=== PATIENT | male | born 1960 | race Caucasian/White ===

== ENCOUNTER 2019-11-03 15:16 | Outpatient (CLI) | payer OTHER, SELFPAY ==
[2019-11-03 15:36] LABS: Creatinine Urine 145.95 mg/dL (40-278); MALB Creatinine Ratio 4.7 mg/g (0-30); Microalbumin Urine Random 6.9 mg/L
[2019-11-03 15:54] LABS: Hemoglobin A1C 6.4 % (<5.7)
[2019-11-03 16:06] LABS: Anion Gap 16.3 mmol/L (7-16); Blood Urea Nitrogen 25 mg/dL (7-18); Calcium 9.3 mg/dL (8.5-10.1); Carbon Dioxide 27 mmol/L (21-32); Chloride 101 mmol/L (98-108); Cholesterol 162 mg/dL (0-200); Estimated Glomerular Filt Rate 59; Glucose 121 mg/dL (70-99); HDL Direct 46 mg/dL (40-60); LDL Cholesterol Calculated 88 mg/dL (<130); Osmolality Calculated 295 mOsm/kg (285-295); Potassium 4.3 mmol/L (3.5-5.1); Sodium 140 mmol/L (136-145); Triglycerides 138 mg/dL (0-150)
== END 2019-11-03 15:17 | disposition home or self-care (01) ==
LOC: CHSLAB 15:20
PROVIDERS: PCP Family Medicine; Visit Provider Family Medicine
DX: E11.9 Type 2 diabetes mellitus without complications (principal)
CPT/HCPCS: 36415; 80048; 80061; 82043; 83036

== ENCOUNTER 2020-06-05 14:26 | Outpatient (CLI) | payer OTHER, SELFPAY ==
--- NOTE | ~2020-06-05 | XR_ITS ---
EXAMINATION: XR chest 2V DATE: 06/05/2020 15:24 INDICATION: Hypertension. Preop. TECHNIQUE: Frontal and lateral views of the chest were obtained. COMPARISON: Chest 2 views 02/15/2011 FINDINGS: A calcified right lung nodule and calcified right hilar lymph nodes are consistent with old granulomatous disease. No pleural effusion or pneumothorax. The heart size is normal. IMPRESSION: 1. No acute cardiopulmonary disease. Reviewed, dictated and finalized at location A.
[2020-06-05 14:41] LABS: Basophils Absolute Auto 0.08 K/mm3 (0.00-0.10); Basophils Percent Auto 1.3 % (0.0-1.0); Eosinophils Absolute Auto 0.37 K/mm3 (0.02-0.50); Eosinophils Percent Auto 5.8 % (1.0-6.0); Hematocrit 40.8 % (40.0-54.0); Immature Granulocyte Absolute 0.02 K/mm3 (0.00-0.00); Immature Granulocyte Percent A 0.3 % (0.0-0.0); Lymphocytes Percent Auto 23.6 % (18.0-42.0); Mean Corpuscular HGB Conc 31.9 g/dL (32.0-36.0); Mean Corpuscular Hemoglobin 28.1 pg (27.0-31.0); Mean Corpuscular Volume 88.3 fL (78.0-102.0); Mean Platelet Volume 9.6 fl (8.7-11.0); Monocytes Absolute Auto 0.58 K/mm3 (0.10-0.90); Monocytes Percent Auto 9.1 % (2.0-11.0); Neutrophils Absolute Auto 3.8 K/mm3 (1.7-7.2); Neutrophils Percent Auto 59.9 % (50.0-70.0); Platelet Count Result 265 K/mm3 (150-420); Red Blood Count 4.62 M/mm3 (4.70-6.10); Red Cell Distribution Width 12.9 % (11.6-14.4); White Blood Count 6.4 K/mm3 (4.8-10.8)
[2020-06-05 14:50] LABS: Add Urine Microscopic? NO; Appearance Urine Clear (Clear); Bilirubin Urine Negative (Negative); Blood Urine Negative (Negative); Color Urine Yellow (Yellow); Glucose Urine UA Negative (Negative); Ketones Urine Negative (Negative); Leukocyte Esterase Ur Negative (Negative); Nitrate Urine Negative (Negative); Protein Urine Negative (Negative); Urobilinogen Urine 0.2 mg/dL (0.2-1.0)
--- NOTE | 2020-06-05 15:05 | ECG_ITS ---
Measurements Intervals [place] Rate: 68 P: 46 WI: 177 QRS: 1 QRSD: 97 T: 51 QT: 383 QTc: 409 Interpretive Statements SINUS RHYTHM NORMAL ECG Electronically Signed On 06-05-2020 17:21:16 CDT by Rodney Garcia D.O.
[2020-06-05 15:43] LABS: Alanine Aminotransferase 49 U/L (16-63); Albumin Level 4.1 g/dL (3.4-5.0); Alkaline Phosphatase 108 U/L (46-116); Anion Gap 5 mmol/L (8-16); Aspartate Amino Transferase 20 U/L (15-37); Bilirubin,Total 0.2 mg/dL (0.00-1.00); Blood Urea Nitrogen 27 mg/dL (7-18); Carbon Dioxide 31 mmol/L (21-32); Chloride 101 mmol/L (98-108); Estimated Glomerular Filt Rate > 60; Glucose 144 mg/dL (70-99); Osmolality Calculated 292 mOsm/kg (285-295); Potassium 4.5 mmol/L (3.5-5.1); Sodium 137 mmol/L (136-145); Total Protein 7.2 g/dL (6.4-8.2)
[2020-06-07 21:43] LABS: Vitamin D 25 Hydroxy 55 ng/mL (30-100)
== END 2020-06-05 14:27 | disposition home or self-care (01) ==
LOC: CHSLAB 14:29
DX: Z01.818 Encounter for other preprocedural examination (principal)
CPT/HCPCS: 36415; 71046; 80053; 81003; 82306; 85025; 93005

== ENCOUNTER 2020-07-11 07:58 | Outpatient (CLI) | payer OTHER, SELFPAY ==
[2020-07-11 08:21] LABS: Hemoglobin A1C 6.9 % (<5.7)
== END 2020-07-11 07:59 | disposition home or self-care (01) ==
LOC: CHSLAB 08:00
PROVIDERS: PCP Family Medicine; Visit Provider Family Medicine
DX: E11.9 Type 2 diabetes mellitus without complications (principal)
CPT/HCPCS: 36415; 83036

== ENCOUNTER 2020-09-25 10:14 | Outpatient (CLI) | payer OTHER, SELFPAY ==
[2020-09-25 10:27] LABS: Basophils Absolute Auto 0.07 K/mm3 (0.00-0.10); Basophils Percent Auto 1.2 % (0.0-1.0); Eosinophils Absolute Auto 0.26 K/mm3 (0.02-0.50); Eosinophils Percent Auto 4.6 % (1.0-6.0); Hematocrit 38.9 % (40.0-54.0); Hemoglobin 12.3 g/dL (14.0-18.0); Immature Granulocyte Absolute 0.03 K/mm3 (0.00-0.00); Immature Granulocyte Percent A 0.5 % (0.0-0.0); Lymphocytes Absolute Auto 1.86 K/mm3 (1.10-4.50); Lymphocytes Percent Auto 32.9 % (18.0-42.0); Mean Corpuscular HGB Conc 31.6 g/dL (32.0-36.0); Mean Corpuscular Hemoglobin 26.7 pg (27.0-31.0); Mean Corpuscular Volume 84.4 fL (78.0-102.0); Mean Platelet Volume 8.6 fl (8.7-11.0); Monocytes Absolute Auto 0.48 K/mm3 (0.10-0.90); Monocytes Percent Auto 8.5 % (2.0-11.0); Neutrophils Percent Auto 52.3 % (50.0-70.0); Platelet Count Result 289 K/mm3 (150-420); Red Blood Count 4.61 M/mm3 (4.70-6.10); Red Cell Distribution Width 14.1 % (11.6-14.4); White Blood Count 5.7 K/mm3 (4.8-10.8)
[2020-09-25 11:28] LABS: Alanine Aminotransferase 32 U/L (16-63); Albumin Level 4.2 g/dL (3.4-5.0); Alkaline Phosphatase 117 U/L (46-116); Anion Gap 10 mmol/L (8-16); Aspartate Amino Transferase 18 U/L (15-37); Bilirubin,Total 0.2 mg/dL (0.00-1.00); Blood Urea Nitrogen 18 mg/dL (7-18); CRP < 0.5 mg/dL (0.0-0.9); Calcium 9.3 mg/dL (8.5-10.1); Carbon Dioxide 28 mmol/L (21-32); Chloride 100 mmol/L (98-108); Estimated Glomerular Filt Rate > 60; Glucose 143 mg/dL (70-99); Osmolality Calculated 289 mOsm/kg (285-295); Potassium 4.3 mmol/L (3.5-5.1); Sodium 138 mmol/L (136-145); Total Protein 7.4 g/dL (6.4-8.2)
[2020-09-25 11:36] LABS: Erythrocyte Sedimentation Rate 20 mm/hr (0-20)
[2020-10-03 13:09] LABS: Vitamin D 25 Hydroxy 53 ng/mL (30-100)
== END 2020-09-25 10:15 | disposition home or self-care (01) ==
LOC: CHSLAB 10:18
PROVIDERS: PCP Family Medicine
DX: Z01.818 Encounter for other preprocedural examination (principal)
CPT/HCPCS: 36415; 80053; 82306; 85025; 85652; 86140

== ENCOUNTER 2021-01-15 13:23 | Outpatient (CLI) | payer OTHER, SELFPAY ==
[2021-01-15 13:40] LABS: Hematocrit 38.5 % (40.0-54.0); Hemoglobin 11.8 g/dL (14.0-18.0); Mean Corpuscular HGB Conc 30.6 g/dL (32.0-36.0); Mean Corpuscular Hemoglobin 25.4 pg (27.0-31.0); Mean Platelet Volume 8.9 fl (8.7-11.0); Platelet Count Result 321 K/mm3 (150-420); Red Blood Count 4.64 M/mm3 (4.70-6.10); Red Cell Distribution Width 14.4 % (11.6-14.4); White Blood Count 7.1 K/mm3 (4.8-10.8)
[2021-01-15] MEDS: SODIUM CHLORIDE 0.9% IV 1,000 ML 500 ML IVPB (13:54)
[2021-01-15] MEDS: ONDANSETRON INJ 4 MG/2 ML VIAL IV PUSH (13:55)
--- NOTE | 2021-01-15 13:55 | PC.NURSE ---
Patient ambulated to floor, gate steady.
[2021-01-15 14:13] LABS: Alanine Aminotransferase 46 U/L (16-63); Albumin Level 3.8 g/dL (3.4-5.0); Alkaline Phosphatase 98 U/L (46-116); Anion Gap 8 mmol/L (8-16); Aspartate Amino Transferase 37 U/L (15-37); Bilirubin,Total 0.3 mg/dL (0.00-1.00); Blood Urea Nitrogen 21 mg/dL (7-18); Calcium 8.7 mg/dL (8.5-10.1); Carbon Dioxide 29 mmol/L (21-32); Chloride 100 mmol/L (98-108); Estimated Glomerular Filt Rate > 60; Glucose 107 mg/dL (70-99); Osmolality Calculated 287 mOsm/kg (285-295); Potassium 3.9 mmol/L (3.5-5.1); Sodium 137 mmol/L (136-145)
[2021-01-15 14:16] LABS: Influenza A QL RT-PCR Negative (Negative); Influenza B QL RT-PCR Negative (Negative); SARS-CoV-2 RNA PCR Negative (Negative)
--- NOTE | 2021-01-15 15:49 | PC.NURSE ---
IV removed, catheter intact. Patient ambulated off of floor, gait steady
== END 2021-01-15 13:24 | disposition home or self-care (01) ==
PROVIDERS: PCP Family Medicine; Visit Provider Family Medicine
DX: K52.9 Noninfective gastroenteritis and colitis, unspecified (principal); E86.0 Dehydration; Z20.822 Contact with and (suspected) exposure to COVID-19
CPT/HCPCS: 36415; 80053; 85027; 87502; 96360; 96361; 96374; C9803; J2405; J7030; U0003; U0005

== ENCOUNTER 2021-03-20 09:42 | Outpatient (CLI) | payer OTHER, SELFPAY ==
--- NOTE | ~2021-03-20 | XR_ITS ---
EXAMINATION: XR shoulder RT min 2V DATE: 03/20/2021 10:01 INDICATION: Right shoulder pain. TECHNIQUE: 4 views of right shoulder were obtained. COMPARISON: Right shoulder radiographs 05/28/2011 FINDINGS: Bone alignment is normal. No fracture. Glenohumeral joint is normal. There is mild acromioc lavicular joint osteoarthritis. There is mild calcific tendinitis of the rotator cuff. IMPRESSION: 1. Mild acromioclavicular joint osteoarthritis. 2. Mild calcific tendinitis of the rotator cuff. Reviewed, dictated and finalized at location A.
== END 2021-03-20 09:43 | disposition home or self-care (01) ==
LOC: CHSIMG 09:45
PROVIDERS: PCP Family Medicine; Visit Provider Family Medicine
DX: M25.511 Pain in right shoulder (principal)
CPT/HCPCS: 73030

== ENCOUNTER 2022-01-22 15:05 | Outpatient (CLI) | payer OTHER, SELFPAY ==
[2022-01-22 15:23] LABS: Hematocrit 44.5 % (40.0-54.0); Hemoglobin 14.9 g/dL (14.0-18.0); Mean Corpuscular HGB Conc 33.5 g/dL (32.0-36.0); Mean Corpuscular Hemoglobin 29.4 pg (27.0-31.0); Mean Corpuscular Volume 87.8 fL (78.0-102.0); Mean Platelet Volume 9.4 fl (8.7-11.0); Platelet Count Result 306 K/mm3 (150-420); Red Blood Count 5.07 M/mm3 (4.70-6.10); White Blood Count 9.9 K/mm3 (4.8-10.8)
[2022-01-22 16:02] LABS: Hemoglobin A1C 5.7 % (<5.7)
[2022-01-22 16:22] LABS: Alanine Aminotransferase 41 U/L (16-63); Alkaline Phosphatase 80 U/L (46-116); Anion Gap 11 mmol/L (8-16); Aspartate Amino Transferase 27 U/L (15-37); Bilirubin,Total 0.3 mg/dL (0.00-1.00); Blood Urea Nitrogen 19 mg/dL (7-18); Calcium 9.6 mg/dL (8.5-10.1); Carbon Dioxide 28 mmol/L (21-32); Chloride 100 mmol/L (98-108); Cholesterol 164 mg/dL (0-200); Estimated Glomerular Filt Rate > 60; Glucose 174 mg/dL (70-99); HDL Direct 70 mg/dL (40-60); LDL Cholesterol Calculated 79 mg/dL (<130); Osmolality Calculated 294 mOsm/kg (285-295); Potassium 3.7 mmol/L (3.5-5.1); Prostate Specific Antigen 1.7 ng/mL (< OR = 4.0); Sodium 139 mmol/L (136-145); Total Protein 7.4 g/dL (6.4-8.2); Triglycerides 74 mg/dL (0-150)
== END 2022-01-22 15:06 | disposition home or self-care (01) ==
LOC: CHSLAB 15:09
PROVIDERS: PCP Family Medicine; Visit Provider Family Medicine
DX: E78.5 Hyperlipidemia, unspecified (principal); I10 Essential (primary) hypertension; E11.9 Type 2 diabetes mellitus without complications; R35.1 Nocturia
CPT/HCPCS: 36415; 80053; 80061; 83036; 84153; 85027; G0103

== ENCOUNTER 2022-03-28 09:28 | Outpatient (CLI) | payer OTHER, SELFPAY ==
--- NOTE | ~2022-03-28 | CT_ITS ---
EXAMINATION: CT abdomen pelvis wo con DATE: 03/28/2022 09:55 INDICATION: Left flank pain TECHNIQUE: Computed tomography (CT) of the abdomen and pelvis was performed without intravenous contr ast. The dose-length product (DLP) was 197.29 mGy-cm. Automated exposure control and iterative recons truction technique were employed. COMPARISON: None FINDINGS: There is a 6 mm nodule of the right lower lobe. The heart size is normal. There is a small sliding hiatal hernia. Punctate calcifications in an otherwise normal spleen likely represent healed granulomatous disease. The liver, gallbladder, pancreas, and adrenal glands are normal. There is a 2. 2 cm cyst in the upper pole of the right kidney. The left kidney is unremarkable. No stones are ident ified in the kidneys, ureters, or bladder. There is mild left hydroureter. No pathologically enlarged abdominal or pelvic lymph nodes are identified. There is calcified atherosclerosis of the aorta and many of the other arteries. There is no free intraperitoneal gas or evidence of bowel obstruction. A moderate volume of colonic stool is present. There are surgical changes in the lumbar spine. IMPRESSION: 1. Mild left hydroureter without obstructing stone visualized. Finding could reflect recent passage o f stone. 2. 6 mm nodule of the right lower lobe. Follow-up CT in 6-12 months is recommended. Reviewed, dictated and finalized at location B. IMPRESSION: 1. Mild left hydroureter without obstructing stone visualized. Finding could re flect recent passage of stone. 2. 6 mm nodule of the right lower lobe. Follow-up CT in 6-12 months is recommen ded.
[2022-03-28 10:05] LABS: Hematocrit 43.8 % (40.0-54.0); Hemoglobin 14.4 g/dL (14.0-18.0); Mean Corpuscular HGB Conc 32.9 g/dL (32.0-36.0); Mean Corpuscular Hemoglobin 29.4 pg (27.0-31.0); Mean Corpuscular Volume 89.4 fL (78.0-102.0); Mean Platelet Volume 8.8 fl (8.7-11.0); Platelet Count Result 301 K/mm3 (150-420); Red Cell Distribution Width 15.8 % (11.6-14.4); White Blood Count 10.4 K/mm3 (4.8-10.8)
[2022-03-28 10:21] LABS: Alanine Aminotransferase 33 U/L (16-63); Albumin Level 3.7 g/dL (3.4-5.0); Alkaline Phosphatase 83 U/L (46-116); Anion Gap 5 mmol/L (8-16); Aspartate Amino Transferase 15 U/L (15-37); Bilirubin,Total 0.2 mg/dL (0.00-1.00); Blood Urea Nitrogen 22 mg/dL (7-18); Carbon Dioxide 30 mmol/L (21-32); Chloride 103 mmol/L (98-108); Estimated Glomerular Filt Rate > 60; Glucose 118 mg/dL (70-99); Lipase 118 U/L (73-393); Osmolality Calculated 290 mOsm/kg (285-295); Potassium 4.3 mmol/L (3.5-5.1); Sodium 138 mmol/L (136-145)
== END 2022-03-28 09:29 | disposition home or self-care (01) ==
LOC: CHSLAB 09:30
PROVIDERS: PCP Family Medicine; Visit Provider Family Medicine
DX: R10.9 Unspecified abdominal pain (principal)
CPT/HCPCS: 36415; 74176; 80053; 83690; 85027

== ENCOUNTER 2022-07-22 13:12 | Emergency (ER) | payer OTHER, SELFPAY ==
--- NOTE | ~2022-07-22 | CT_ITS ---
EXAMINATION: CT pelvis wo con DATE: 07/22/2022 14:08 INDICATION: Right hip pain post fall TECHNIQUE: High resolution computed tomography (CT) of the pelvis was performed without intravenous c ontrast. Additional sagittal and coronal reconstructions were performed. Automated exposure control a nd iterative reconstruction technique were employed. The dose-length product was 265.19 mGy-cm. COMPARISON: 03/28/2022 FINDINGS: Mild levocurvature the visualized lower lumbar spine. Again seen are changes of prior L5-S1 anterior spinal fusion with interbody bone graft cage and anterior plate and screw fixation. L3-L5 laminectomi es and L4-S1 posterior spinal fusion with bilateral vertical rods with pedicle screw fixations at L4 and S1. The right pedicle screw at L4 extends beyond the lateral margin of the vertebral bodies. Bone graft harvest site at the right posterior iliac spine. No acute fracture. Moderate bilateral sacroil iac and mild bilateral hip osteoarthritis. Bladder is normal. Prostatomegaly. Visualized portion of t he bowels are unremarkable. No free fluid in the pelvis. No pathologically enlarged pelvic or inguina l lymphadenopathy. IMPRESSION: 1. No hip fracture or other acute osseous abnormality. 2. Stable appearance of postoperative changes including anterior and posterior spinal fusion at the l ower lumbar spine. Reviewed, dictated and finalized at location B. IMPRESSION: 1. No hip fracture or other acute osseous abnormality. 2. Stable appearance of postoperative changes including anterior and posterior spinal fusion at the lower lumbar spine.
[2022-07-22 13:15] VITALS: BP 167/87; PULSE 106; RESP 16; TEMP 36.9; O2SAT 96
[2022-07-22 13:26] VITALS: BP 167/87; PULSE 106; RESP 16; TEMP 36.9; O2SAT 96
[2022-07-22] MEDS: ACETAMINOPHEN 325 MG TABLET 650 MG PO (14:58)
--- NOTE | 2022-07-22 15:29 | PC.NURSE ---
PT IS LYING ON STRETCHER IN EXAM ROOM WATCHING TV AWAITING ERP DECISION. NAD NOTED. PT WAS MOVED TO ROOM 5 DUE TO NEEDING THE MONITOR FOR ANOTHER PT. WILL CONTINUE TO MONITOR.
[2022-07-22 15:39] VITALS: BP 120/89; PULSE 77; RESP 16; O2SAT 96
--- NOTE | 2022-07-22 15:44 | ED.LOWEXIN ---
HPI - Extremity Injury (Lower) General Chief Complaint: Extremity Injury, Lower Stated Complaint: FELL RIGHT HIP PAIN Time Seen by Provider: 07/22/22 13:16 Source: patient and RN notes reviewed Mode of arrival: ambulatory Limitations: no limitations History of Present Illness complaint: hip injury and fall Onset (ago): hour(s) (1) Injury: Right: hip Place: street/outdoors Severity: mild Severity scale (1-10): 3 Exacerbating factors: weight bearing Context: fall Associated symptoms: able to partially bear weight Other symptoms: none Related Data Allergies Allergy/AdvReac Type Severity Reaction Status Date / Time No Known Allergies Allergy Unknown Verified 07/15/22 07:40 Review of Systems Review of Systems: All systems reviewed & are unremarkable except as noted in HPI and below Constitutional: Constitutional: Reports no additional constitutional complaints Eyes: Eyes: Reports no additional eye complaints ENT: Reports system reviewed and no additional complaints, except as documented Cardiovascular: Cardiovascular: Reports no additional cardiovascular complaints Respiratory: Respiratory: Reports no additional respiratory complaints Gastrointestinal: Gastrointestinal: Reports no additional gastrointestinal complaints Musculoskeletal: Musculoskeletal: Reports no additional musculoskeletal complaints and Reports arthralgias Integumentary/Breasts: Skin/Breast: Reports system reviewed and no additional complaints, except as docu Neurologic: Reports system reviewed and no additional complaints, except as documented Psychiatric: Psychiatric: Reports no additional psychiatric complaints Endocrine: Endocrine: Reports no additional endocrine complaints Hematologic/Lymphatic: Hematologic/Lymphatic: Reports no additional hematologic/lymphatic complaints Allergic/Immunologic: Allergic/Immunologic: Reports no additional allergic/immunologic complaints PMFSH Past Medical History Medical History DM2 (diabetes mellitus, type 2) Hip pain Hyperlipidemia Hypertension Overweight Surgical History Surgical History History of elbow surgery History of knee surgery History of shoulder surgery Family History Family History Father Family history of type 2 diabetes mellitus Social History Social History Smoking status: Former smoker Tobacco type: cigarettes Additional smoking assessment comments: Quit 10-06-2018. Additional living arrangements comments: Exam Const: General: healthy appearing, no acute distress and well nourished Nutritional Appearance: well nourished Orientation/consciousness: patient oriented x3 Limitations: no limitations HENMT: Head: normal to inspection Ears: external ears normal, TM's normal bilaterally and EAC's normal Face/Nose/Sinus: Normal external nose present, Normal nares present, normal facial exam and sinuses nontender Face and sinus: normal facial exam and sinuses nontender Mouth: Yes Normal oral and palatal mucosa present and Yes moist mucous membranes Teeth and gingiva: dentition normal Throat: posterior oropharynx normal Eyes: Conjunctivae: conjunctivae normal Pupils: Equal, round and reactive pupils present EOM: EOMs intact bilaterally Neck: Neck: normal visual inspection, no lymphadenopathy and no meningeal signs Chest: Chest palpation & inspection: normal inspection of the chest Resp: Effort & Inspection: normal respiratory effort Auscultation: clear to auscultation bilaterally Cardio: Rate: regular rate Rhythm: regular rhythm GI: GI Palp: Yes Soft to palpation and No Tenderness to palpation present (GI) Auscultation: normal bowel sounds : General: Yes bladder normal to palpation and Yes no CVA tenderness Back/Spine/Pelvis: B
== END 2022-07-22 16:10 | disposition home or self-care (01) ==
PROVIDERS: Emergency Provider Emergency Medicine; PCP Family Medicine
DX: S70.01XA Contusion of right hip, initial encounter (principal); W19.XXXA Unspecified fall, initial encounter
CPT/HCPCS: 72192; 99284; A9270

== ENCOUNTER 2022-08-02 12:47 | Outpatient (CLI) | payer OTHER, SELFPAY ==
--- NOTE | ~2022-08-02 | MR_ITS ---
EXAMINATION: MR hip RT wo con DATE: 08/02/2022 14:02 INDICATION: Right hip pain. TECHNIQUE: Magnetic resonance imaging (MRI) of the right hip was performed without intravenous contra st. COMPARISON: Pelvis CT 07/22/2022 FINDINGS: Bones/cartilage: There is lumbar levoscoliosis. There are changes of anterior and posterior fusion procedures in lumba r spine. There is a subchondral fracture of right femoral head posterosuperiorly with subchondral scl erosis and cortical irregularity. Edema-like marrow signal intensity extends from this area into the femoral neck. There are areas of full-thickness cartilage loss in right hip joint superiorly and post erosuperiorly. There is There is moderate left hip osteoarthritis. Labrum: There is a tear of the right acetabular labrum. Fluid: There is a right hip joint effusion. Soft tissues: There is mild tendinopathy of right hamstring origin. There is a partial tear of left hamstring origi n. The iliopsoas tendons are normal. Right gluteus minimus and gluteus medius tendons are normal. The re is mild left gluteus minimus tendinopathy. IMPRESSION: 1. Severe chondrosis of right hip joint with subchondral fracture of right femoral head. 2. Right hip joint effusion. 3. Moderate left hip osteoarthritis. Reviewed, dictated and finalized at location A. OPERATOR AUTOMATIC IMPRESSION: 1. Severe chondrosis of right hip joint with subchondral fracture of right femo ral head. 2. Right hip joint effusion. 3. Moderate left hip osteoarthritis.
== END 2022-08-02 12:48 | disposition home or self-care (01) ==
LOC: CHSIMG 12:48
PROVIDERS: PCP Family Medicine; Visit Provider Family Medicine
DX: M25.551 Pain in right hip (principal)
CPT/HCPCS: 73721

== ENCOUNTER 2023-01-08 11:51 | Outpatient (CLI) | payer OTHER, SELFPAY ==
--- NOTE | ~2023-01-08 | DEXA_ITS ---
Bone Density Report Name: TAYLOR TORRES Age: 62 Sex: Male Ethnicity: White Date of : 1960 Indication: parental hip fracture; height loss; prior fracture; rheumatoid arthritis; Referring Provider: Teodoro Plunkett Study: Bone densitometry was performed. Exam Date: January 08, 2023 Accession number: [id number] Bone Density: Region BMD T-score Z-score Classification Femoral Neck (Left) 0.641 -2.1 -1.1 Osteopenia Total Hip (Left) 0.888 -1.0 -0.5 Normal World Health Organization criteria for BMD impression classify patients as: Normal (T-score at or above -1.0), Osteopenia (T-score between -1.0 and -2.5), or Osteoporosis (T-score at or below -2.5). 10-year Fracture Risk: FRAX not reported because: Prior hip or vertebral fracture Clinical Information Provided by Patient: Have had a previous hip or vertebral fracture Has had a low trauma fracture Parent has had a hip fracture Has rheumatoid arthritis Has used the following medications: Vitamin D Patient maximum height was 72 No regular weight bearing exercise Does not regularly consume dairy products Drinks caffeinated beverages Impression: The patient has low bone mass, based on the Left Femoral Neck T-score. The patient has risk factors, including: parental hip fracture, previous fracture. Discussion: INCREASED RISK OF FRACTURE DUE TO HISTORY OF LOW TRAUMA FRACTURE. The patient's previous fracture puts the patient at high risk of a future fracture. In untreated patients, the risk of osteoporotic fracture increases approximately two-fold for each 1.0 SD decrease in T-score. Low bone density is not the only risk factor for fracture; also consider factors such as patient's age, frailty or poor health, risk of falling, risk of injury, previous osteoporotic fracture, family history of osteoporosis, cigarette smoking, low body weight, etc. Not everyone with a low trauma fracture has osteoporosis; osteomalacia and other metabolic bone disorders should also be considered. Patients who have osteoporosis should be evaluated for specific diseases and conditions (secondary causes) that may cause or contribute to bone loss and fracture risk. National Osteoporosis Foundation (NOF) recommends pharmacologic intervention for patients with a prior low trauma hip or vertebral fracture regardless of BMD T-score. The patient should follow a healthful lifestyle (good nutrition with adequate calcium and vitamin D, and appropriate weight-bearing exercise). Follow-Up: Consider a repeat BMD and Vertebral Fracture Assessment (VFA) exam in 2 years or sooner if medically necessary, to reassess this patient's status. Reported by: Dr. Tavon Roy on 01/08/2023 12:31:00 PM. Reviewed, dictated and finalized at location AGerard JUNG
--- NOTE | ~2023-01-08 | XR_ITS ---
XR elbow LT 2V DATE: 01/08/2023 12:42 INDICATION: Chronic left medial elbow pain, worse the past 2 weeks TECHNIQUE: AP and lateral views of left elbow COMPARISON: None FINDINGS: There is moderate osteoarthritis at the elbow joint. No fracture or dislocation or joint ef fusion. No periosteal reaction or bone destruction. IMPRESSION: Moderate osteoarthritis Reviewed, dictated and finalized at location B. IMPRESSION: Moderate osteoarthritis
[2023-01-08 12:05] LABS: Hematocrit 42.9 % (40.0-54.0); Hemoglobin 13.8 g/dL (14.0-18.0); Mean Corpuscular HGB Conc 32.2 g/dL (32.0-36.0); Mean Corpuscular Hemoglobin 28.1 pg (27.0-31.0); Mean Corpuscular Volume 87.4 fL (78.0-102.0); Platelet Count Result 312 K/mm3 (150-420); Red Blood Count 4.91 M/mm3 (4.70-6.10); White Blood Count 7.1 K/mm3 (4.8-10.8)
[2023-01-08 12:16] LABS: Creatinine Urine 21.55 mg/dL (40-278); MALB Creatinine Ratio 60.3 mg/g (0-30); Microalbumin Urine Random < 13.0 mg/L
[2023-01-08 12:27] LABS: Hemoglobin A1C 5.7 % (<5.7)
[2023-01-08 12:35] LABS: Alanine Aminotransferase 38 U/L (16-63); Albumin Level 4.5 g/dL (3.4-5.0); Alkaline Phosphatase 76 U/L (46-116); Anion Gap 7 mmol/L (8-16); Aspartate Amino Transferase 25 U/L (15-37); Bilirubin,Total 0.3 mg/dL (0.00-1.00); Blood Urea Nitrogen 24 mg/dL (7-18); Calcium 9.5 mg/dL (8.5-10.1); Carbon Dioxide 33 mmol/L (21-32); Chloride 100 mmol/L (98-108); Cholesterol 244 mg/dL (0-200); Estimated Glomerular Filt Rate > 60; Glucose 133 mg/dL (70-99); HDL Direct 78 mg/dL (40-60); LDL Cholesterol Calculated 143 mg/dL (<130); Osmolality Calculated 296 mOsm/kg (285-295); Potassium 4.1 mmol/L (3.5-5.1); Sodium 140 mmol/L (136-145); Total Protein 7.5 g/dL (6.4-8.2); Triglycerides 114 mg/dL (0-150)
[2023-01-13 12:19] LABS: Testosterone Free 140.9 pg/mL (35.0-155.0); Testosterone Total 1225 ng/dL (250-1100)
== END 2023-01-08 11:52 | disposition home or self-care (01) ==
PROVIDERS: PCP Family Medicine; Visit Provider Family Medicine
DX: E11.9 Type 2 diabetes mellitus without complications (principal); I10 Essential (primary) hypertension; E78.5 Hyperlipidemia, unspecified; M25.522 Pain in left elbow; M85.89 Other specified disorders of bone density and structure, multiple sites; M19.022 Primary osteoarthritis, left elbow; M85.88 Other specified disorders of bone density and structure, other site
CPT/HCPCS: 36415; 73070; 77080; 80053; 80061; 82043; 83036; 84402; 84403; 85027

== ENCOUNTER 2023-05-21 08:35 | Outpatient (CLI) | payer OTHER, SELFPAY ==
--- NOTE | 2023-05-21 11:00 | NEURO_ITS ---
Impression: # Complains of left hand numbness. Non-diabetic with history of right Anterior forearm surgery in the past. # Severe left Carpal Tunnel Syndrome. # Moderate right Carpal Tunnel Syndrome. # Bilateral ulnar neuropathy across the elbow. # Abnormal Needle/EMG exam. Nerve Conduction Studies Anti Sensory Summary Table Stim Site NR Peak (ms) P-T Amp (?V) Site1 Site2 Delta-P (ms) Dist (cm) Zeeshan (m/s) Left Median Anti Sensory (2-3nd Digit) Wrist 8.8 8.6 Wrist 2-3nd Digit 8.8 14.0 16 Wrist 8.2 19.4 Wrist 2-3nd Digit 8.8 14.0 16 Right Median Anti Sensory (2-3nd Digit) Wrist 6.7 18.5 Wrist 2-3nd Digit 6.7 14.0 21 Wrist 7.2 29.0 Wrist 2-3nd Digit 6.7 14.0 21 Left Radial Anti Sensory (Base 1st Digit) Wrist 1.9 52.2 Wrist Base 1st Digit 1.9 0.0 Right Radial Anti Sensory (Base 1st Digit) Wrist 2.8 13.8 Wrist Base 1st Digit 2.8 0.0 Left Ulnar Anti Sensory (5th Digit) Wrist 3.7 26.8 Wrist 5th Digit 3.7 14.0 38 Right Ulnar Anti Sensory (5th Digit) Wrist 3.3 75.5 Wrist 5th Digit 3.3 14.0 42 Motor Summary Table Stim Site NR Onset (ms) O-P Amp (mV) Site1 Site2 Delta-0 (ms) Dist (cm) Zeeshan (m/s) Left Median Motor (Abd Poll Brev) Wrist 7.6 1.2 Elbow Wrist 4.5 26.0 58 Elbow 12.1 1.0 Right Median Motor (Abd Poll Brev) Wrist 4.3 1.7 Elbow Wrist 6.7 31.0 46 Elbow 11.0 2.1 Left Ulnar Motor (Abd Dig Minimi) Wrist 3.0 5.2 A Elbow Wrist 6.9 30.0 43 A Elbow 9.9 6.4 B Elbow Wrist 4.8 25.0 52 B Elbow 7.8 7.0 Right Ulnar Motor (Abd Dig Minimi) Wrist 2.9 6.0 A Elbow Wrist 7.2 32.0 44 A Elbow 10.1 4.5 B Elbow Wrist 4.6 23.0 50 B Elbow 7.5 4.4 F Wave Studies NR F-Lat (ms) L-R F-Lat (ms) Left Median (Mrkrs) (Abd Poll Brev) 36.21 1.05 Right Median (Mrkrs) (Abd Poll Brev) 35.15 1.05 Left Ulnar (Mrkrs) (Abd Dig Min) 32.69 0.00 Right Ulnar (Mrkrs) (Abd Dig Min) 32.69 0.00 EMG Side Muscle Nerve Root Ins Act Fibs Amp Dur Recrt Comment Right 1stDorInt Ulnar C8-T1 Nml Nml Nml >12ms Reduced Right Ext Indicis Radial (Post Int) C7-8 Nml Nml Nml Nml Nml Right Ext Digitorum Radial (Post Int) C7-8 Nml Nml Nml Nml Nml Right BrachioRad Radial C5-6 Nml Nml Nml Nml Nml Right PronatorTeres Median C6-7 Nml Nml Nml Nml Nml Right Abd Poll Brev Median C8-T1 Nml Nml Nml >12ms Reduced Left 1stDorInt Ulnar C8-T1 Nml Nml Nml >12ms Reduced Left Ext Indicis Radial (Post Int) C7-8 Nml Nml Nml Nml Nml Left Ext Digitorum Radial (Post Int) C7-8 Nml Nml Nml Nml Nml Left BrachioRad Radial C5-6 Nml Nml Nml Nml Nml Left PronatorTeres Median C6-7 Nml Nml Nml Nml Nml Left Abd Poll Brev Median C8-T1 Nml Nml Nml >12ms Reduced Right ABD Dig Min Ulnar C8-T1 Nml Nml Nml >12ms Reduced Right Biceps Musculocut C5-6 Nml Nml Nml Nml Nml Right Triceps Radial C6-7-8 Nml Nml Nml Nml Nml Right Deltoid Axillary C5-6 Nml Nml Nml Nml Nml Left ABD Dig Min Ulnar C8-T1 Nml Nml Nml >12ms Reduced Left Biceps Musculocut C5-6 Nml Nml Nml Nml Nml Left Triceps Radial C6-7-8 Nml Nml Nml Nml Nml Left Deltoid Axillary C5-6 Nml Nml Nml Nml Nml MTDD
== END 2023-05-21 08:36 | disposition home or self-care (01) ==
LOC: ANHNEURO 08:36
PROVIDERS: PCP Family Medicine; Visit Provider Family Medicine
DX: G56.03 Carpal tunnel syndrome, bilateral upper limbs (principal); G56.23 Lesion of ulnar nerve, bilateral upper limbs
CPT/HCPCS: 95886; 95911

== ENCOUNTER 2023-09-29 07:42 | Outpatient (RCR) | payer MEDICARE, SELFPAY ==
--- NOTE | 2023-09-29 07:57 | PTOPEVAL1 ---
Assessment and note entered by Lakhwinder Jaffe Evaluation Information Assessment Status Evaluation Diagnosis BPPV Onset 09/15/23 Subjective Information Pt. reports that he developed the flu over [place]. After he got over the flu he started to notice dizziness. He reports that dizziness is most notable with driving. He states that he feels like he is drunk. He reports that its a brief dizziness typically followed by nausea. Pt. has hx of heart attack. He reports some dizziness with bending forward quickly and standing quickly. He reports that he was having daily episodes, however yesterday was the first day he went without dizziness. He reports that his goal is to eliminate his dizziness. Reported Pain Level Pain Score 0: Self Report Assessment PT Clinical Summary Pt. is a 62 year old male who enters the clinic with developed dizziness. He presents with negative [place] Halpike Manuever on this date. Despite the negative testing proceeded with the Davion Manuever for at home performance. He does have rapid elevation in HR of approximately 25 bpm from supine to immediate standing. Pt. going to complete follow up visit to determine response to the Davion. If pt. symptoms do not subside then we will contact the doctor to discuss other cardiac findings. Plan of Care Interventions Patient/Caregiver Educati,Therapeutic Activities, Therapeutic Exercise Other Interventions Canalith repositioning PT Services Indicated Yes Treatment Frequency and 2x/week x 1 week and 1x/week x 1 week for 3 total Duration visits These treatments will address the objective and functional deficits as defined above. The patient will be advanced safely and appropriately in order for the patient to progress towards his/her prior level of function. Additional exercises will be introduced and as well as a comprehensive home exercise program upon discharge, if needed, ?to ensure carryover of functional gains achieved in the clinic. This treatment plan has been reviewed and agreement upon by the patient.
--- NOTE | 2023-09-29 08:46 | OPREHPOC ---
Outpatient Therapy Plan of Care This is a Multidisciplinary Plan of Care that may contain components documented by all disciplines (PT, OT, and ST.) PT Problem 1 PT Problem #1 Knowledge Deficit PT Goal 1 Goal Pt. will be independent with the home Davion Maneuver. Target Visit 3 PT Problem 2 PT Problem #2 Impaired Vestibular Syste PT Goal 1 Goal Pt. will report going 1 week without an Episode of dizziness. Target Visit 3 PT Problem 3 PT Problem #3 Impaired Vestibular Syste PT Goal 1 Goal DHI will demonstrate less than 20% limitation
== END 2023-10-02 20:00 | disposition home or self-care (01) ==
LOC: CHSPT 07:42
PROVIDERS: PCP Family Medicine; Visit Provider Family Medicine
DX: H81.13 Benign paroxysmal vertigo, bilateral (principal)
CPT/HCPCS: 95992; 97110; 97161

== ENCOUNTER 2023-10-23 06:47 | Outpatient (CLI) | payer MEDICARE, SELFPAY ==
--- NOTE | ~2023-10-23 | MR_ITS ---
EXAMINATION: MR brain IAC wo con DATE: 10/23/2023 07:52 INDICATION: Dizziness and giddiness. TECHNIQUE: Magnetic resonance imaging (MRI) of the brain, brainstem, and internal auditory canals was performed without intravenous contrast. COMPARISON: None. FINDINGS: There are scattered areas of nonspecific increased T2-weighted signal intensity in the cere bral white matter, which is within normal limits for the patient's age. There is no intracranial hemo rrhage, acute infarction, or abnormal intracranial mass lesion. The ventricles are normal in size. Th ere are likely changes of ocular lens replacement surgeries. The paranasal sinuses are clear. The int ernal auditory canals and inner ears and tympanic cavities are normal. The mastoid air cells are norm al. IMPRESSION: 1. Normal aging brain. Reviewed, dictated and finalized at location A. ATTENDANT IMPRESSION: 1. Normal aging brain.
== END 2023-10-23 06:48 | disposition home or self-care (01) ==
LOC: CHSIMG 06:48
PROVIDERS: PCP Family Medicine; Visit Provider Family Medicine
DX: R42 Dizziness and giddiness (principal)
CPT/HCPCS: 70551

== ENCOUNTER 2023-11-27 10:26 | Outpatient (CLI) | payer MEDICARE, SELFPAY | END 2023-11-27 10:27 | disposition home or self-care (01) | LOC: CHSLAB 10:29 | PROVIDERS: PCP Family Medicine; Visit Provider Urology | DX: N40.1 Benign prostatic hyperplasia with lower urinary tract symptoms (principal) | CPT/HCPCS: 36415; 84153 ==

== ENCOUNTER 2023-12-10 09:06 | Outpatient (CLI) | payer MEDICARE, SELFPAY ==
[2023-12-10 09:42] LABS: Hemoglobin A1C 5.7 % (<5.7)
[2023-12-10 10:07] LABS: Cholesterol 162 mg/dL (0-200); HDL Direct 70 mg/dL (40-60); LDL Cholesterol Calculated 77 mg/dL (<130); Triglycerides 76 mg/dL (0-150)
== END 2023-12-10 09:07 | disposition home or self-care (01) ==
LOC: CHSLAB 09:07
PROVIDERS: PCP Family Medicine; Visit Provider Family Medicine
DX: E11.9 Type 2 diabetes mellitus without complications (principal)
CPT/HCPCS: 36415; 80061; 83036

== ENCOUNTER 2024-01-12 09:41 | Outpatient (CLI) | payer MEDICARE, SELFPAY ==
--- NOTE | ~2024-01-12 | XR_ITS ---
EXAMINATION: XR chest 2V 01/12/2024 10:16 INDICATION: Preop PROCEDURE: 2 view chest COMPARISON: No prior studies for comparison. FINDINGS: The lungs are clear. The cardiomediastinal silhouette is within normal limits. There are no pleural effusions. There is no pneumothorax suspected. IMPRESSION: 1: NO ACUTE CARDIOPULMONARY DISEASE. Reviewed, dictated and finalized at location B.
[2024-01-12 10:13] LABS: Appearance Urine Clear (Clear); Basophils Absolute Auto 0.06 K/mm3 (0.00-0.10); Basophils Percent Auto 0.8 % (0.0-1.0); Bilirubin Urine Negative (Negative); Blood Urine Negative (Negative); Color Urine Yellow (Yellow); Eosinophils Absolute Auto 0.12 K/mm3 (0.02-0.50); Eosinophils Percent Auto 1.7 % (1.0-6.0); Glucose Urine UA Negative (Negative); Hematocrit 41.1 % (40.0-54.0); Hemoglobin 13.2 g/dL (14.0-18.0); Immature Granulocyte Absolute 0.02 K/mm3 (0.00-0.00); Immature Granulocyte Percent A 0.3 % (0.0-0.0); Ketones Urine 1+ (Negative); Leukocyte Esterase Ur Negative LEU/UL (Negative); Lymphocytes Absolute Auto 1.13 K/mm3 (1.10-4.50); Lymphocytes Percent Auto 15.7 % (18.0-42.0); Mean Corpuscular HGB Conc 32.1 g/dL (32-36); Mean Corpuscular Hemoglobin 28.1 pg (27.0-31.0); Mean Corpuscular Volume 87.4 fL (78.0-102.0); Mean Platelet Volume 9.2 fl (8.7-11.0); Monocytes Absolute Auto 0.49 K/mm3 (0.10-0.90); Monocytes Percent Auto 6.8 % (2.0-11.0); Neutrophils Percent Auto 74.7 % (50.0-70.0); Nitrate Urine Negative (Negative); Platelet Count Result 290 K/mm3 (150-420); Protein Urine Negative (Negative); Red Cell Distribution Width 13.5 % (11.6-14.4); Urobilinogen Urine 0.2 mg/dL (0.2-1.0); White Blood Count 7.2 K/mm3 (4.8-10.8)
[2024-01-12 10:18] LABS: Add Urine Microscopic? YES; Bacteria Urine None seen /hpf; RBC Urine None seen /hpf (0-2); WBC Urine None seen /hpf (0-3)
[2024-01-12 10:23] LABS: Hemoglobin A1C 5.8 % (<5.7)
[2024-01-12 11:30] LABS: Anion Gap 11 mmol/L (4-12); Blood Urea Nitrogen 35 mg/dL (7-18); Carbon Dioxide 29 mmol/L (21-32); Chloride 102 mmol/L (98-108); Potassium 4.3 mmol/L (3.5-5.1); Sodium 142 mmol/L (136-145)
[2024-01-12 11:31] LABS: Alanine Aminotransferase 44 U/L (16-63); Albumin Level 3.8 g/dL (3.4-5.0); Alkaline Phosphatase 86 U/L (46-116); Aspartate Amino Transferase 29 U/L (15-37); Bilirubin,Total 0.2 mg/dL (0.00-1.00); Calcium 8.9 mg/dL (8.5-10.1); Estimated Glomerular Filt Rate > 60; Glucose 129 mg/dL (70-99); Osmolality Calculated 304 mOsm/kg (285-295); Total Protein 6.5 g/dL (6.4-8.2)
== END 2024-01-12 09:42 | disposition home or self-care (01) ==
PROVIDERS: PCP Family Medicine
DX: Z01.818 Encounter for other preprocedural examination (principal)
CPT/HCPCS: 36415; 71046; 80053; 81001; 83036; 85025

== ENCOUNTER 2024-03-03 10:31 | Outpatient (CLI) | payer MEDICARE, SELFPAY ==
--- NOTE | ~2024-03-03 | US_ITS ---
EXAMINATION: US venous doppler LE RT DATE: 03/03/2024 10:58 INDICATION: Right lower limb pain TECHNIQUE: Grayscale ultrasound images without and with compression and Doppler ultrasound images of the right lower extremity veins were obtained. COMPARISON: None. FINDINGS: The visualized portions of right common femoral vein, profunda (deep) femoral vein, femoral vein, pop liteal vein, posterior tibial veins, peroneal veins, gastrocnemius vein and greater saphenous vein ou tflow are patent. IMPRESSION: 1. No deep venous thrombosis in the right lower limb. Reviewed, dictated and finalized at location A.
== END 2024-03-03 10:32 | disposition home or self-care (01) ==
LOC: CHSIMG 10:33
PROVIDERS: PCP Family Medicine
DX: M79.661 Pain in right lower leg (principal)
CPT/HCPCS: 93971

== ENCOUNTER 2024-03-05 11:30 | Outpatient (CLI) | payer MEDICARE, SELFPAY ==
[2024-03-05 11:48] LABS: Basophils Absolute Auto 0.09 K/mm3 (0.00-0.10); Basophils Percent Auto 0.9 % (0.0-1.0); Eosinophils Absolute Auto 0.22 K/mm3 (0.02-0.50); Eosinophils Percent Auto 2.1 % (1.0-6.0); Hematocrit 39.9 % (40.0-54.0); Hemoglobin 12.9 g/dL (14.0-18.0); Immature Granulocyte Absolute 0.04 K/mm3 (0.00-0.00); Immature Granulocyte Percent A 0.4 % (0.0-0.0); Lymphocytes Absolute Auto 1.43 K/mm3 (1.10-4.50); Lymphocytes Percent Auto 13.6 % (18.0-42.0); Mean Corpuscular HGB Conc 32.3 g/dL (32-36); Mean Corpuscular Hemoglobin 27.9 pg (27.0-31.0); Mean Corpuscular Volume 86.4 fL (78.0-102.0); Mean Platelet Volume 9.1 fl (8.7-11.0); Monocytes Absolute Auto 0.98 K/mm3 (0.10-0.90); Monocytes Percent Auto 9.3 % (2.0-11.0); Neutrophils Absolute Auto 7.77 K/mm3 (1.70-7.20); Neutrophils Percent Auto 73.7 % (50.0-70.0); Platelet Count Result 320 K/mm3 (150-420); Red Blood Count 4.62 M/mm3 (4.70-6.10); Red Cell Distribution Width 13.7 % (11.6-14.4); White Blood Count 10.5 K/mm3 (4.8-10.8)
[2024-03-05 13:56] LABS: Alanine Aminotransferase 27 U/L (16-63); Albumin Level 3.6 g/dL (3.4-5.0); Alkaline Phosphatase 62 U/L (46-116); Anion Gap 13 mmol/L (4-12); Aspartate Amino Transferase 20 U/L (15-37); Bilirubin,Total 0.3 mg/dL (0.00-1.00); Blood Urea Nitrogen 25 mg/dL (7-18); CRP 3.7 mg/dL (0.0-0.9); Calcium 8.7 mg/dL (8.5-10.1); Carbon Dioxide 25 mmol/L (21-32); Chloride 103 mmol/L (98-108); Estimated Glomerular Filt Rate > 60; Glucose 95 mg/dL (70-99); Lipase 22 U/L (16-77); Osmolality Calculated 296 mOsm/kg (285-295); Potassium 4.1 mmol/L (3.5-5.1); Sodium 141 mmol/L (136-145); Total Protein 6.6 g/dL (6.4-8.2)
[2024-03-05 14:17] LABS: Thyroid Stimulating Hormone Reflex 1.74 u/IU/mL (0.36-3.74)
[2024-03-05 14:49] LABS: Occult Blood Negative (Negative)
[2024-03-05 15:31] LABS: Toxigenic C. Diff POSITIVE (NEGATIVE)
[2024-03-08 14:19] LABS: Lactoferrin, Stool COMMENT:
== END 2024-03-05 11:31 | disposition home or self-care (01) ==
LOC: CHSLAB 11:32
PROVIDERS: PCP Family Medicine; Visit Provider Family Medicine
DX: K52.9 Noninfective gastroenteritis and colitis, unspecified (principal); E03.9 Hypothyroidism, unspecified; R10.9 Unspecified abdominal pain
CPT/HCPCS: 36415; 80053; 82272; 82705; 82710; 83630; 83690; 84443; 85025; 86140; 87045; 87427; 87449; 87493

== ENCOUNTER 2024-07-02 12:39 | Outpatient (CLI) | payer MEDICARE, SELFPAY ==
[2024-07-02 13:18] LABS: Hemoglobin A1C 5.9 % (<5.7)
[2024-07-02 13:26] LABS: Alanine Aminotransferase 40 U/L (16-63); Albumin Level 3.7 g/dL (3.4-5.0); Alkaline Phosphatase 77 U/L (46-116); Anion Gap 6 mmol/L (4-12); Aspartate Amino Transferase 21 U/L (15-37); Bilirubin,Total 0.3 mg/dL (0.00-1.00); Blood Urea Nitrogen 19 mg/dL (7-18); Calcium 9.1 mg/dL (8.5-10.1); Carbon Dioxide 31 mmol/L (21-32); Chloride 100 mmol/L (98-108); Cholesterol 207 mg/dL (0-200); Estimated Glomerular Filt Rate > 60; Glucose 101 mg/dL (70-99); HDL Direct 77 mg/dL (40-60); LDL Cholesterol Calculated 119 mg/dL (<130); Osmolality Calculated 286 mOsm/kg (285-295); Potassium 4.1 mmol/L (3.5-5.1); Sodium 137 mmol/L (136-145); Total Protein 6.7 g/dL (6.4-8.2); Triglycerides 54 mg/dL (0-150)
[2024-07-08 14:09] LABS: Testosterone Free 112 pg/mL (35.0-155.0); Testosterone Total 813 ng/dL (250-1100)
[2024-07-08 16:14] LABS: Estrogen 81 pg/mL (< OR = 404)
== END 2024-07-02 12:40 | disposition home or self-care (01) ==
PROVIDERS: Nurse Practitioner Family; PCP Family Medicine; Visit Provider Nurse Practitioner Family
DX: R79.89 Other specified abnormal findings of blood chemistry (principal); Z13.6 Encounter for screening for cardiovascular disorders; E78.5 Hyperlipidemia, unspecified; E11.9 Type 2 diabetes mellitus without complications; I10 Essential (primary) hypertension
CPT/HCPCS: 36415; 80053; 80061; 82672; 83036; 84402; 84403

== ENCOUNTER 2025-06-05 09:42 | Emergency (ER) | payer MEDICARE, SELFPAY ==
--- OUTSIDE RECORDS SUMMARY | 2015-03-08 10:44 | XMS_ITS | Continuity of Care Document ---
Author Organization [employer] [place] Address [address] [place] [address] [address] [place] [address] Phone Care Team Providers Care Bookkeeping Assistant Name Role Phone Hanny Sotelo DPT Unavailable [...] Diagnoses Date Provider Providers Copied on Encounter [address] [address], [place], [place], [id number], [phone] [place] No Information 5 Deepak Gamino. [address] [place] [address], [facility] [address], [place], [facility], . tel:[phone] [address] [address], [place], [place], [id number], [phone] [place] No Information 5 Deepak Gamino. [address] [place] [address], [facility] 105, [place], [facility], . tel: [phone] Referring Provider: Raf Huynh [address] [place] [address] Medical Office Building [address], [facility]. tel:[phone], [id number], tel:[phone] [place] No Information 5 Deepak Gamino. [address] [place] [address], [facility] [address], [place], [facility], . tel: [phone] Referring Provider: Raf Huynh [address] [place] [address] Medical Office Building [address], [facility]. tel:[phone], [id number], tel:[phone] [place] No Information 5 Deepak Gamino. [address] [place] [address], [address], [facility], . tel:[phone] Referring Provider: Raf Huynh [address] [place] [address] Office Building [address], [facility]. tel:[phone] [address] [place] [address], [id number], tel:[phone] [place] No Information May-2 0-201 5 Deepak Hanny. [address] [place] [address], [address], [facility], . tel: [phone] Referring Provider: Raf Huynh, [address] [place] [address] Medical Office Building [address], [facility]. tel:[phone] [place], [place] [address]e [address] [place] [address], [id number], tel:[phone] [place] No Information January-1 2-201 5 Deepak Hanny. [address] [place] [address], [address], [facility], . tel: [phone] Referring Provider: Raf Huynh, [address] [place] [address] Medical Office Building [address], [facility]. tel:[phone] [place] [address], [id number], tel:[phone] [place] No Information May-0 5-201 5 Deepak Hanny. [address] [place] [address], [address] [place] [address], [facility], . tel:[phone] Referring Provider: Raf Huynh, [address] [place] [address] Medical Office Building [address], [facility]. tel:[phone] [place] [address], [id number], tel:[phone] [place] No Information May-0 1-201 5 Deepak Hanny. [address] [place] [address], [address], [facility], . tel:[phone] Referring Provider: Raf Huynh, [address] [place] [address] Medical Office Building [address], [facility]. tel:[phone] [place] [address], [id number], tel:[phone] [place] No Information 7 5 Deepak Gamino. [address] [place] [address], [place] [address], . tel: [phone] Referring Provider: Raf Huynh, [address] [place] [address] Medical Office [facility] [address], [facility]. tel:[phone], [id number], tel:[phone] [place] No Information 0 5 Muehl Sangita. [address] [place] [address], [place] [address], . tel: [phone] Referring Provider: Raf Huynh, [address] [place] [address], [facility]. tel:[phone] [place] [address], [id number], tel:[phone] [place] No Information 2 5 Muehl Sangita. [address] [place] [address], [address], [facility], . tel: [phone] Referring Provider: Raf Huynh, [address] [place] [address] [address] [place] [address], [facility]. tel:[phone], [id number], tel:[phone] [place] No Information 6 5 Marlon Richard. [address] [place] [address], [place] [address], . tel: [phone] Referring Provider: Raf Huynh, [address] [place] [address] Medical Office Building [address], [facility]. tel:[phone] [facility] [address] [place] [address], [id number], [place] tel:[phone] [place] No Information 6-201 4 Mason Hilary. [address] [place] [address], [address], [place], [facility], . tel: [phone] Referring Provider: Raf Huynh, [address] [place] [address] Medical Office Building [address], [address]. tel:[phone] [place] [address], [place], [place], [id number], [place] tel:[phone] [place] No Information 5-201 4 Mason Hilary. [address] [place] [address], [address], [place], [facility], . tel: [phone] Referring Provider: Raf Huynh, [address] [place] [address] Medical Office Building [address], [address]. tel:[phone] [place] [address], [place], [place], [id number], [place] tel:[phone] [place] No Information 0 3-201 4 Mason Hilary. [address] [place] [address], [address], [facility], [place]. tel: [phone] Referring Provider: Raf Huynh, [address] [place] [address] Medical Office Building [address], [address]. tel:[phone] [address] [address], [place], [place], [id number], [place] tel:[phone] [place] No Information 0-201 4 Mason Hilary. [address] [place] [address], [address], [facility], [place]. tel: [phone] Referring Provider: Raf Huynh, [address] [place] [address] Medical Office Building [address], [address]. tel:[phone], [place], [place], [id number], [place] tel:[phone] [place] Pain in joint involving lower leg Nov- 1-201 4 Marlon Palaciosi. [address] [place] [address], [address], [place], [address], [place]. tel: [phone] Referring Provider: Raf Huynh, [address] [facility] Medical Office Building [address] [address], [place], [address]. tel:[phone] [place] [address] [address], [place], [place], [id number], [place] tel:[phone] [place] No Information 4 Masonángel Palaciosi. [address] [place] [address], [address], [place], [address], [place]. tel:[phone] Referring Provider: Jillian Hackett [address] [place] [address] [address], [place], [address]. tel:[phone] [place] [address] [address] [place] [address], [place], [place], [id number], [place] tel:[phone] [place] No Information 0 4 Lara-Cody es Bari. [address] [place] [address], [address], [place], [address], [place]. tel:[phone] Referring Provider: Jillian Hackett, [address] [place] [address] [address], [place], [address]. tel:[phone] [facility] [address] [address], [place], [place], [id number], [place] tel:[phone] [place] No Information 0 4 Lara-Cody es Bari. [address] [place] [address], [address], [place], [address], [place]. tel:[phone] Referring Provider: Jillian Hackett [address] [place] [address] [address], [place], [address]. tel:[phone] [facility], [facility] [address] [address], [place], [place], [id number], [place] tel:[phone] [place] No Information Feb-2 0-201 4 Lara-Cody es Bari. [address] [place] [address], [address], [place], [facility], . tel: [phone] Referring Provider: Jillian Hackett [address] [facility] [address], [place], [address]. tel:[phone], [id number], tel:[phone] [place] No Information b-1 3-201 4 Lara-Cody es Bari. [address] [place] [address], [address], [place], [facility], . tel: [phone] Referring Provider: Jillian Hackett Critical access hospital[facility] [address], [place], [address]. tel:[phone], [id number], tel:[phone] [place] No Information b-1 0-201 4 Lara-Cody es Bari. [address] [place] [address], [address], [facility], . tel: [phone] Referring Provider: Jillian Hackett [address] [facility] [address], [place], [address]. tel:[phone], [id number], tel:[phone] [place] No Information Feb-0 6-201 4 Lara-Cody es Bari. [address] [place] [address], [address], [place], [facility], . tel:[phone] Referring Provider: Jillian Hackett [address] [facility] [address], [place], [address]. tel:[phone] [address], [place], [id number], tel:[phone] [place] No Information 4 Mason Hilary. [address] [place] [address], [address], [place], [facility], . tel:[phone] Referring Provider: Kendrick Mercado1 [facility] [address], [place], [address]. tel:[phone] [address], [place], [id number], tel:[phone] [place] No Information 201 4 Mason Hilary. [address] [place] [address], [address] [place] [address], [facility], . tel:[phone] Referring Provider: Kendrick Mercado[address] [place] [address] [address] [place], [address]. tel:[phone] [address], [place], [place], [id number], tel:[phone] [place] No Information 4 Mason Hilary. [address] [place] [address], [address], [facility], . [phone] Referring Provider: Kendrick Mercado[address] [place] [address] [address], [place], [address]. tel:[phone] [address], [place], [place], [id number], tel:[phone] [facility] 3-201 4 Mason Hilary. [address] [place] [address], [address], [facility], . [phone] Referring Provider: Kendrick Mercado1 [facility] [address], [place], [address]. tel:[phone] Family History Family Member Type Diagnosis Age At Onset No Information Payers Payer name Insurance type Covered green party ID Authoriza tion(s) No Information Social History [...]
--- OUTSIDE RECORDS SUMMARY | 2024-03-06 16:30 | XMS_ITS ---
Author Organization [facility] ([address]) Address [address] [place] [address] Care Team Providers Care Can Sealer Name Role Phone Darren Rose Primary Care Provider UnavailBarbara Webb Unavailable [phone] ZZ-Migration, Provider Unavailable Unavailab le REASON FOR VISIT Multum To Medispan Conversion Encounter Medications Medication SIG (Take, Route, Frequency, Duration) Notes Start Date End Date Status HYDROCODONE CP 5mg/325mg takes prn *Please review for potential replacement for e-prescription and drug interaction check* Active Multivitamin - 1 po once a day Active Lisinopril 10 MG 1 tab(s) orally once a day; Duration: 30 day(s) Active Encounters Encounter Location Date Provider Diagnosis [address] [address] 03/06/2024 Provider ZZ-Migration Plan Of Treatment No Information Progress Notes * Bobo TORRESDOB:1960 (64 yo M)Acc No.[id number]:03/06/2024 Patient: Bobo REYES Provider: Kyrie pena Migration :1960 A ge:63 Y S ex:Male Date:03/06/2024 [facility] [facility] Pcp:Darren Rose Subjective: * Chief Complaints: * 1 . Multum To Medispan Conversion Encounter. * Medical History: * Medications: T aking Multivitamin - Tablet 1 po once a day , Taking HYDROCODONE CP , Notes to Pharmacist: 5mg/325mg takes prn *Please review for potential replacement for e-prescription and drug interaction check*, Taking Lisinopril 10 MG Tablet 1 tab(s) orally once a day Objective: * Vitals: Assessment: Plan: * Treatment: * Billing Information: * Visit Code: * Procedure Codes: * Electronic signature of Mery PICKENS-Migration on 06/05/2025 at 09:45 AM CDT Sign off status: Pending * Provider: Kyrie pena Migration Date: 03/06/2024 Generated for Alem quezada/Chuck/Thais on: 0 06/05/2025 09:45 AM CDT
--- NOTE | ~2025-06-05 | CT_ITS ---
EXAMINATION: CT diagnostic chest wo angelica, 06/05/2025 10:20 CDT HISTORY: Fall last PM, Lt. posterior chest wall pain; worsening COMPARISON: No comparisons available. TECHNIQUE: CT scan of the chest was performed without IV contrast. One or more of the following dose reduction techniques were used: automated exposure control, adjustment of the mA and/or kV according to patient size, use of iterative reconstruction technique. FINDINGS: No significant coronary calcification is present ([id number]) LUNGS: No tracheomalacia. No bronchiectasis. No significant emphysematous changes. No contusion or pneumothorax. No significant pulmonary fibrotic changes. Nonspecific elevation left hemidiaphragm. There are scattered punctate calcified granulomas in the lung parenchyma. HEART AND PERICARDIUM: Within normal limits. AORTA: Normal caliber aorta. ADENOPATHY/MEDIASTINUM: There are calcified mediastinal lymph nodes. LIMITED VIEWS OF THE ABDOMEN: Right kidney simple appearing renal cyst 2 x 2 cm. OSSEOUS STRUCTURES: No sclerotic or lytic lesions. No acute rib fractures identified. Mild levoconvex scoliosis of the thoracic spine. OVERLYING SOFT TISSUES: Unremarkable. THYROID: The thyroid is unremarkable. IMPRESSION: No acute process identified Reviewed, dictated and finalized at location A. IMPRESSION: No acute process identified
[2025-06-05 09:44] VITALS: BP 153/102; PULSE 86; RESP 18; O2SAT 96
--- NOTE | 2025-06-05 09:45 | ED_ITS ---
HPI - Fall General Chief Complaint: Back Pain/Injury Stated Complaint: left side back pain from fall Time Seen by Provider: 06/05/25 09:44 Source: patient Mode of arrival: ambulatory Limitations: no limitations History of Present Illness HPI Narrative: 64-year-old male with a history of ex smoking,MANNY, depression, hypertension, diabetes mellitus, status post left total knee replacement, status post back surgery had an accidental fall last night after he tripped a carpet. He hit his left posterior chest wall on the commode. He presents to the ED with -- left lower posterior chest wall pain which is made worse by deep breathing and coughing. -- Shortness of breath. no head or neck pain. No loss of consciousness Onset (ago): hour(s) ( 12 hours ago) Fall from: standing Fall witnessed: no Place fall occurred: home Loss of consciousness: none Prolonged down time: no Symptoms prior to fall: none Context: tripped/slipped Location of injury: chest Associated symptoms (after fall): chest pain Related Data Home Medications ?Medication ?Instructions ?Recorded ?Confirmed ?Last Taken ?Type metformin 500 mg tablet 500 mg PO BID 03/28/2503/28 Unknown History sirolimus 2 mg tablet 2 mg PO DAILY 03/28/2503/28 Unknown History Allergies Allergy/AdvReac Type Severity Reaction Status Date / Time celecoxib (From Celebrex) Allergy Mild itching Verified 06/05/25 09:53 iodine Allergy Mild itching Verified 06/05/25 09:53 Review of Systems 2 Review of Systems: All systems reviewed & are unremarkable except as noted in HPI and below Constitutional: Constitutional: Reports as per HPI and Reports no additional constitutional complaints Eyes: Eyes: Reports as per HPI and Reports no additional eye complaints ENT: Reports system reviewed and no additional complaints, except as documented and Reports as per HPI Cardiovascular: Cardiovascular: Reports as per HPI and Reports no additional cardiovascular complaints Respiratory: Respiratory: Reports as per HPI, Reports no additional respiratory complaints and Reports dyspnea Comments: left posterior chest wall pain Gastrointestinal: Gastrointestinal: Reports as per HPI and Reports no additional gastrointestinal complaints Genitourinary: Genitourinary: Reports no additional male genitourinary complaints and Reports as per HPI Musculoskeletal: Musculoskeletal: Reports no additional musculoskeletal complaints and Reports as per HPI Integumentary/Breasts: Skin/Breast: Reports system reviewed and no additional complaints, except as docu and Reports as per HPI Comments: no chest wall bruising noted. Neurologic: Reports system reviewed and no additional complaints, except as documented and Reports as per HPI Psychiatric: Psychiatric: Reports no additional psychiatric complaints and Reports as per HPI Endocrine: Endocrine: Reports no additional endocrine complaints and Reports as per HPI Hematologic/Lymphatic: Hematologic/Lymphatic: Reports no additional hematologic/lymphatic complaints and Reports as per HPI Allergic/Immunologic: Allergic/Immunologic: Reports no additional allergic/immunologic complaints and Reports as per HPI [facility] Past Medical History Medical History Anxiety and depression Hyperlipidemia Hypertension DM2 (diabetes mellitus, type 2) Surgical History Surgical History Total knee replacement status History of shoulder surgery History of knee surgery History of elbow surgery Family History Family History Father Family history of type 2 diabetes mellitus Social History Social History Smoking status: Former smoker Tobacco type: cigarettes Additional smoking assessment comments: Quit 10-06-2018. Lack of Transportation: No Lack of Food: Never True Current Housing: I Have Housing Concerned About Future Housing: No Difficulty Paying Gas/Electric Bills: No Difficulty Paying for Meds: No Currently Unemployed: No Education: High School Diploma/GED Living arrangements: with family Additional living arrangements comments: Exam 2 Narrative: Blood pressure 153/102. Oxygen saturation of 96% on room air with a respiratory rate of 18. Const: General: no acute distress Orientation/consciousness: patient oriented x3 Limitations: no limitations HENMT: Head: normal to inspection Ears: external ears normal F channing/Nose/Sinus: Normal external nose present Face and sinus: normal facial exam Mouth: Yes Normal oral and palatal mucosa present Throat: posterior oropharynx normal Eyes: Conjunctivae: conjunctivae normal Pupils: Equal, round and reactive pupils present EOM: EOMs intact bilaterally Direct Ophthalmoscopy: no photophobia Neck: Neck: normal visual inspection, no lymphadenopathy and no meningeal signs Other: No spinal tenderness Chest: Chest palpation & inspection: normal inspection of the chest and abnormal inspection of the chest Resp: Effort & Inspection: normal respiratory effort Auscultation: clear to auscultation bilaterally Other: posterior chest wall tenderness. Crepitus noted over the 10/11 ribs posteriorly. Cardio: Rate: regular rate Rhythm: regular rhythm GI: Auscultation: normal bowel sounds Other: Tenderness/rigidity/rebound. : General: Yes no CVA tenderness Back/Spine/Pelvis: Back: no CVA tenderness Skin: General skin exam: normal color Rashes: no rashes Wounds: no wounds Other: No bruising noted over the left posterior chest wall. Neuro: General: patient oriented x3, moves all extremities, no meningeal signs, no focal motor deficits and CN's II-XI intact bilaterally Cranial nerves: Yes Nystagmus not present Speech: normal speech Extrem: General: normal to inspection and no clubbing, cyanosis or edema Psych: Mental Status: mental status grossly normal Affect: normal affect Attitude: cooperative Course Course Emergency Course: Accidental fall posterior chest wall trauma-- CT of the chest did not show any acute findings. UA is negative. Normal lipase. Even though CT does not show any rib fractures the patient has crepitus of left posterior lower ribs. Vital Signs Vital signs: Vital Signs Pulse Rate 86 06/05/25 09:44 Respiratory Rate 18 06/05/25 09:44 Blood Pressure 153/102 H 06/05/25 09:44 Pulse Oximetry 96 06/05/25 09:44 Oxygen Delivery Room Air 06/05/25 09:44 Pulse Rate 86 06/05/25 09:44 Respiratory Rate 18 06/05/25 09:44 Blood Pressure 153/102 H 06/05/25 09:44 Pulse Oximetry 96 06/05/25 09:44 Oxygen Delivery Room Air 06/05/25 09:44 MDM - Fall MDM Narrative Medical decision making narrative: Accidental fall chest wall pain Differential Diagnosis Differential diagnosis: Likely other ( abdominal trauma, pneumothorax) Medical Records Attestation: I reviewed the patient's medical records. Lab Data Attestation: I reviewed the patient's lab results. 06/05/25 10:15 06/05/25 10:15 Labs: Lab Results 06/05/25 06/05/25 Range/Units 10:15 10:20 WBC 6.6 (4.8-10.8) K/mm3 RBC 5.13 (4.70-6.10) M/mm3 Hgb 14.1 (12.4-15.3) g/dL Hct 43.6 (37.0-46.0) % MCV 85.0 (78.0-102.0) fL MCH 27.5 (27.0-31.0) pg MCHC 32.3 (32-36) g/dL RDW 14.8 H (11.6-14.4) % Plt Count 303 (150-420) K/mm3 MPV 8.6 L (8.7-11.0) fl Immature Gran % (Auto) 0.9 H (0.0-0.0) % Neut % (Auto) 72.3 H (50.0-70.0) % Lymph % (Auto) 17.7 L (18.0-42.0) % Harnett % (Auto) 7.3 (2.0-11.0) % Eos % (Auto) 1.2 (1.0-6.0) % Baso % (Auto) 0.6 (0.0-1.0) % Lymph # (Auto) 1.17 (1.10-4.50) K/mm3 Harnett # (Auto) 0.48 (0.10-0.90) K/mm3 Eos # (Auto) 0.08 (0.02-0.50) K/mm3 Baso # (Auto) 0.04 (0.00-0.10) K/mm3 Abs Immat Gran (auto) 0.06 H (0.00-0.00) K/mm3 Absolute Neuts (auto) 4.79 (1.70-7.20) K/mm3 Absolute Nucleated RBC 0.00 (0.00-0.00) K/mm3 Nucleated RBC % 0.0 (0-0.0) % Sodium 138 (137-145) mmol/L Potassium 4.5 (3.4-5.0) mmol/L Chloride 99 (98-107) mmol/L Carbon Dioxide 27 (22-30) mmol/L Anion Gap 12 (4-12) mmol/L BUN 18 (9-20) mg/dL Creatinine 0.75 (0.7-1.3) mg/dL Estim Creat Clear Calc 91 ml/min Estimated GFR > 60 (59 - ) Glucose 168 H (65-110) mg/dL Calculated Osmolality 291 (285-295) mOsm/kg Calcium 10.0 (8.4-10.2) mg/dL Total Bilirubin 0.6 (0.2-1.3) mg/dL AST 38 (17-59) U/L ALT 38 (6-50) U/L Alkaline Phosphatase 67 (38-126) U/L Total Protein 8.6 H (6.3-8.2) g/dL Albumin 4.7 (3.5-5.1) g/dL Lipase 118 (23-300) U/L Urine Color Yellow (Yellow) Urine Appearance Clear (Clear) Urine pH 5.5 (5.0-8.0) Ur Specific [place] 1.020 (1.010-1.020) Urine Protein Negative (Negative) Urine Glucose (UA) Negative (Negative) Urine Ketones Negative (Negative) Ur Blood (Man) Negative (Negative) Urine Nitrate Negative (Negative) Urine Bilirubin Negative (Negative) Urine Urobilinogen 0.2 (0.2-1.0) mg/dL Leukocyte Esterase Rfl Negative (Negative) DOUG/UL Discharge Plan Discharge Clinical Impression: Acute chest wall pain Accidental fall Qualifiers: Encounter type: initial encounter Qualified Code(s): W19.XXXA - Unspecified fall, initial encounter Patient Disposition: Home Condition: Stable Instructions: Antibiotic Form, Fall Prevention (ED), Chest Wall Pain (ED) Patient Language: Rwandan Prescriptions: New hydrocodone-acetaminophen 5-325 mg tablet 1 tablet PO Q6H PRN (Reason: pain) Qty: 14 0RF No Action sirolimus 2 mg tablet 2 mg PO DAILY metformin 500 mg tablet 500 mg PO BID clonazepam 1 mg tablet 1 mg PO DAILY PRN (Reason: anxiety) Qty: 15 2RF tamsulosin 0.4 mg capsule 0.4 mg PO DAILY Qty: 90 0RF lisinopril-hydrochlorothiazide 20-25 mg tablet 1 tablet PO DAILY Qty: 90 3RF Follow-up/Referrals: Teodoro Plunkett DO [Primary Care Provider, [facility]] Time of Disposition: 11:30
--- OUTSIDE RECORDS SUMMARY | 2025-06-05 09:45 | XMS_ITS | Encounter Summary ---
Author Organization [facility] Healthcare Address [address] [place] [address] Care Team Providers Care Parish Worker Name Role Phone Lloyd Chi MD Primary Care Provider [phone] Unknown, Notinfile Primary Care Provider Unavail able No, Physician Primary Care Provider [phone] No, Physician Primary Care Provider [phone] Teodoro Plunkett DO Primary Care Provider Darren Rose MD Unavailable [phone] Aung Lenz MD Unavailable [phone] Encounter Details Date Type Department Care Team (Late st Contact Info) Description 05/26/2019 Telephone [facility] [place] [id number] [facility] [address] [place] [address] Mann Priest MD [address] [facility] [address] [place] [address] Social History Tobacco Use Types Packs/Day Years Used Date Smoking Tobacco: Every Day Smokeless Tobacco: Current Chew Alcohol Use Standard Drinks/Week Comments Yes 0 (1 standard drink = 0.6 oz pur e alcohol) Sex and Gender Information Value Date Recorded Sex Assigned at Not on file Legal Sex Male 11:55 PM PHYSICAL THERAPY ASST Gender Identity Not on file Sexual Orientation Not on file documented as of this encounter Plan of Treatment Not on file documented as of this encounter Goals Goal Patient Goal Type Associated Problems Recent Progress Patient-Stated? Author CCM Chronic Pain Care Plan Chronic Care Management No change(06/23 9:14 AM CDT) No Kathy Lima RN Note: Problem: Chronic Pain Goals: 1. Minimize further functional decline 2. Maximize quality of life 3. Control pain Strategies: - Activity/exercise program recommendation - Conservative stepwise pain medicine strategy with multi-disciplinary approach - Recommend healthy lifestyle strategies and compensatory methods as needed Reduce the likelihood of falling Lifestyle No Macarena Beckett Note: Below are four things you can do to prevent falls: 1. Begin an exercise program to improve your leg strength & balance 2. Ask your doctor or pharmacist to review your medicines 3. Get annual eye check-ups & update your eyeglasses 4. Make your home safer by: Removing clutter & tripping hazards Putting railings on all stairs & adding grab bars in the bathroom Having good lighting, especially on stairs Contact your local [facility] or [facility] for information on exercise, fall prevention programs, or options for improving home safety. Reduce the likelihood of falling Lifestyle No Kathy Lima, PATSY Note: Below are four things you can do to prevent falls: 1. Begin an exercise program to improve your leg strength & balance 2. Ask your doctor or pharmacist to review your medicines 3. Get annual eye check-ups & update your eyeglasses 4. Make your home safer by: Removing clutter & tripping hazards Putting railings on all stairs & adding grab bars in the bathroom Having good lighting, especially on stairs Contact your [facility] or [facility] for information on exercise, fall prevention programs, or options for improving home safety. documented as of this encounter Visit Diagnoses Not on filedocumented in this encounter Additional Health Concerns Infection Onset Date Last Indicated Resolved Time COVID: Suspected 08/27/2022 08/27/2022 08/27/2022 2:52 PM PHYSICAL THERAPY ASST documented as of this encounter Care Teams Parish Worker Relationship Specialty Start Date End Date Lloyd Chi MD [address] [place] [id number] PCP - General 06/23/17 05/17/20 Unknown, Notinfile PCP - General 05/18/20 11/22/20 No, Physician PCP - General 11/23/20 11/30/20 No, Physician PCP - General 12/01/20 08/05/22 Teodoro Plunkett DO [address] [place] [address] PCP - General Family Medicine 08/06/22 Darren Rose MD [address] [facility] [address] [place] [address] Surgeon Orthopedic Surgery 10/28/22 Aung Lenz MD [address] [facility] [address] [place] [address] Consulting Physician Anesthesiology 02/03/25 documented as of this encounter
--- OUTSIDE RECORDS SUMMARY | 2025-06-05 09:45 | XMS_ITS | Clinical Summary ---
Author Organization [address] Address [address] [place] [address] Care Team Providers Care Assembling Fabricator Name Role Phone Teodoro Plunkett DO Primary Care Provider Darren Rose MD Unavailable [phone] Aung Lenz MD Unavailable [phone] Allergies Active Allergy Reactions Criticality Noted Date Comments Celecoxib Itching Low 08/22/2023 Iodine Anaphylaxis High 08/27/2022 Only when given intranasally per pt. Medications lisinopril-hydr oCHLOROthiazide (PRINZIDE,ZESTO RETIC) 20-25 mg per tablet Take 1 tablet by mouth daily Active multivit with minerals/lutein (MULTIVITAMIN 50 PLUS ORAL) daily Active clonazePAM (KlonoPIN) 2 mg tablet Take 1 tablet (2 mg total) by mouth daily as needed 3 Active tamsulosin (FLOMAX) 0.4 mg extended release capsule Take 1 capsule (0.4 mg total) by mouth nightly 4 Active UNABLE TO FIND daily Med Name: Super Green Active mupirocin (BACTROBAN) 2 % ointment Intranasal DOSE#1 The morning of the day before surgery DOSE#2 The evening of the day before surgery DOSE#3 The morning of the surgery. 22 g 4 Active Additional Information Patient not taking.Reported on 03/23/2025 metFORMIN (GLUCOPHAGE) 500 mg tablet Take 1 tablet (500 mg total) by mouth daily 5 Active sirolimus (RAPAMUNE) 2 mg tabletIndicatio ns:immunosuppre ssion Take 1 tablet (2 mg total) by mouth daily Active cyclobenzaprine (FLEXERIL) 10 mg tabletIndicatio ns:Myalgia, other site Take 1 tablet (10 mg total) by mouth daily as needed for muscle spasms 30 tablet 5 06/09/20 25 Active Active Problems Problem Noted Date Diagnosed Date Aftercare following joint replacement surgery Pain due to total right knee replacement, initia l encounter 02/09/2024 Failed total knee arthroplasty, initial encounte r 02/09/2024 Pain due to total right knee replacement 024 Carpal tunnel syndrome, left 10/02/2023 Carpal tunnel syndrome on right 10/02/2023 Cubital tunnel syndrome on right 10/02/2023 Cubital tunnel syndrome on left 10/02/2023 Closed fracture of head of right femur, initial encounter 10/28/2022 Closed right hip fracture, initial encounter 02/2023 Chronic rhinitis 10/21/2022 Chronic allergic conjunctivitis 10/21/2022 Adverse effect of unspecifie d drugs, medicaments and biological substances, initial encounter 10/21/2022 Closed fracture of head of right femur 2 Overview (08/12/2022): Added automatically from request for surgery [id number] Closed fracture of head of right femur 2 Stem cell donor 01/06/2020 Lumbar post-laminectomy syndrome 06/23/2019 Arthritis 02/17/2018 Chronic pain 02/17/2018 Chronic pain of both knees 02/17/2018 Ankylosis of joint of lower extremity 08/12/2017 Need for prophylactic antibiotic 08/12/2017 Increased body mass index (BMI) 04/17/2016 High risk medication use 04/17/2016 Rheumatoid arthritis(714.0) 04/17/2016 Arthralgia 03/06/2016 Joint swelling 03/06/2016 Acquired spondylolisthesis of lumbosacral region 01/04/2015 Lumbar radiculopathy 09/26/2014 Arteriosclerotic vascular disease 02/05/2014 Overview (12/25/2016): ATHEROSCLEROSIS NOS Benign hypertension 02/05/2014 Overview (12/27/2016): BENIGN HYPERTENSION Hyperlipidemia 02/05/2014 Overview (12/27/2016): HYPERLIPIDEMIA NEC/NOS Osteoarthritis of lumbar spine 06/15/2013 Knee pain 11/17/2012 Spinal stenosis of lumbar region 10/01/2011 DDD (degenerative disc disease), lumbar 07/16/20 10 Herniated lumbar intervertebral disc 07/16/2010 Low back pain 07/16/2010 Encounters Date Type Department Care Team Description 04/07/2025 10:15 AM CDT - 04/07/2025 11:59 PM CDT Hospital Encounter [facility] 2 [facility] A, Akil. [address] [place] [address] Ashley Holman NP Myalgia Discharge Disposition: Discharge to home or self care 03/23/2025 11:45 AM CDT Office Visit [facility] [address] [place] [id number] Thomas Gonsales PA Glenohumeral arthritis, left (Primary Dx); Rotator cuff tendinitis, right; Biceps tendinitis of right upper extremity 03/22/2025 7:57 AM CDT - 03/22/2025 11:59 PM CDT Hospital Encounter [facility] [address] [place] [address] A, Akil. [address] [place] [address] Ashley Holman NP Myalgia (Primary Dx) Discharge Disposition: Discharge to home or self care from Last 3 Months Immunizations Immunization Administration Dates Next Due Influenza, Unspecified 06/22/2022,06/22/2020,12/2013 Surgical History Surgery Date Site/Laterality Comments APPENDECTOMY Appendectomy KNEE ARTHROPLASTY 1989 Bilateral Knee replacement OTHER SURGICAL HISTORY B/L SHOULDER SURGERY KNEE SURGERY Knee Surgery - (Added by TW Conv) bilateral replacement, total of 22 surgeries ELBOW SURGERY Bilateral Elbow Surgery - (Added by TW Conv) SHOULDER SURGERY Bilateral Shoulder Surgery - (Added by TW Conv) rotator cuff IR INJECTION ARTHROGRAM SI JOINT LEFT INCLUDES IMAGING GUIDANCE 09/17/2019 Left IR INJECTION ARTHROGRAM SI JOINT RIGHT INCLUDES IMAGING GUIDANCE 10/06/2019 Right SPINE SURGERY x6, spinal fusion from L3-S1 WRIST SURGERY Right TOTAL HIP ARTHROPLASTY Right Medical History Medical History Date Comments Pseudoarthrosis of lumbar spine Myocardial infarction (HCC) 2001 Rheumatoid arthritis (HCC) Obesity Sleep apnea pt states dr serafin horton not bad enough for a c-pap machine Hypertension Depression Family History Medical History Relation Name Comments Arthritis Father Family history of arthritis - (Added by TW Conv) Diabetes Father Family history of diabetes mellitus - (Added by TW Conv) Heart attack Father Myocardial infa rction; Arthritis Mother Family history of arthritis - (Added by TW Conv) Relation Name Status Comments Father Mother Social History Tobacco Use Types Packs/Day Years Used Date Smoking Tobacco: Former Cigarettes 1 40 1 [id number] Smokeless Tobacco: Current Chew Tobacco Cessation:Ready to Q uit: Not Asked; Counseling Given: Not Answered Comments:uses wape currently Alcohol Use Standard Drinks/Week Comments Yes 0 (1 standard drink = 0.6 oz pur e alcohol) AUDIT-C Answer Date Recorded Q1: How often do you have a drink containing alc ohol? 2-4 times a month 03/23/2025 Average Number of Drinks Not on file Frequency of Binge Drinking Not on file 10/2024 PHQ-2 Answer Date Recorded PHQ-2 Total Score (If total score is 3 or more points, staff should administer the PHQ-9) 0 02/09/2024 PHQ-9 Answer Date Recorded PHQ-9 Total Score 9 12/17/2023 Personal Safety Answer Date Recorded Have you ever been in or are you currently in a harmful physical or emotional relationship or is someone making you feel afraid or unsafe? Denies 02/09/2024 Sex and Gender Information Value Date Recorded Sex Assigned at Not on file Legal Sex Male 11:55 PM MANAGER INFORMATION Gender Identity Not on file Sexual Orientation Not on file Obstetrics History Last Filed Vital Signs Vital Sign Reading Time Taken Comments Blood Pressure 116/70 04/07/2025 10:29 AM CDT Pulse 75 04/07/2025 10:29 AM CDT Temperature 36.7 C (98.1 F) 04/07/2025 10:29 AM CDT Respiratory Rate 18 04/07/2025 10:29 AM CDT Oxygen Saturation 96% 04/07/2025 10:29 AM CDT Inhaled Oxygen Concentration - - Weight 84.4 kg (186 lb) 03/23/2025 11:49 AM CDT Height 177.8 cm (5' 10) 03/23/2025 11:49 AM CDT Body Mass Index 26.69 03/23/2025 11:49 AM CDT Plan of Treatment Health Maintenance Due Date Last Done Comments Colon Cancer Screening-Colonoscopy 1959 Prostate Cancer Screening-PSA 1959 DTaP/Tdap/Td Vaccine (1 - Tdap) 11/29/1970 Hepatitis B Screening 11/29/1977 Lung Cancer Screening 11/29/2009 Pneumococcal vaccine 65+ (2 of 2 - PPSV23, PCV20, or PCV21) 09/04/2020 07/10/2020 Zoster Vaccine (2 of 2) 09/04/2020 07/10/2020 Abdominal Aortic Aneurysm (A AA) Screen 11/29/2024 Well Visit 65+ 11/29/2024 Depression Screening 02/01/2025 02/02/2024, 12/17/2023, 12/17/2023 Fall Risk Assessment 02/09/2025 02/10/2024, 05/01/2020, 08/24/2019, Additional history exists Influenza Vaccine (#1) 2025 , 07/10/2020, 06/22/2020, Additional history exists Hepatitis C Screening Completed 03/06/2016 Goals Goal Patient Goal Type Associated Problems Recent Progress Patient-Stated? Author CCM Chronic Pain Care Plan Chronic Care Management No change(06/23 9:14 AM CDT) No Kathy Lima, PATSY Note: Problem: Chronic Pain Goals: 1. Minimize [...] on stairs Contact your local [facility] or [facility] for information on exercise, fall prevention programs, or options for improving home safety. Reduce the likelihood of falling Lifestyle Kathy Monzon RN Note: Below are four things you can [...] on stairs Contact your local [facility] or [facility] for information on exercise, fall prevention programs, or options for improving home safety. Medical Devices Implanted Type Area Crisis Nurse Device Identifier Shelf Expiration Date Model / Serial / Lot Medtronic Miraculins Danek [id number] Infuse 20ga 2x1in Vial Absorbable Syringe Needle Medium Graft 5.6 - [id number] Implanted:Qty: 1 on 12/01/2020 by Stuart Lopez MD at [facility] N/A: Lumbar- Sacral Spine Medtronic Inc 06/22/2021 [id number] / / [id number] Screw 7.5mm X 45mm Srmlne Pedicle - [id number] Implanted:Qty: 3 on 12/01/2020 by Stuart Lopez MD at [facility] N/A: Lumbar- Sacral Spine [employer] -75-45 / / Screw 9.5mm X 45mm Srmlne Pedicle - [id number] Implanted:Qty: 1 on 12/01/2020 by Stuart Lopez MD at [facility] N/A: Lumbar- Sacral Spine [employer] -95-45 / / Screw Set Streamline Tl Screw System - [id number] Implanted:Qty: 4 on 12/01/2020 by Stuart Lopez MD at [facility] N/A: Lumbar- Sacral Spine [employer] SETSCREW / / Rti Surgical Inc Quantum 5.5mm 60mm Prebent Tony Spinal Titanium - [id number] Implanted:Qty: 1 on 12/01/2020 by Stuart Lopez MD at [facility] N/A: Lumbar- Sacral Spine [employer] / / Qsrs Pre-Bent 5.5mm X 65mm - [id number] Implanted:Qty: 1 on 12/01/2020 by Stuart Lopez MD at [facility] N/A: Lumbar- Sacral Spine [employer] / / Depuy Orthopaedics Inc Articul/Chapito 36mm Cementless Hip +5mm 12/14 Taper Head Femoral Latex Free [id number] - [id number] Implanted:Qty: 1 on 10/28/2022 by Darren Rose MD at [facility] Right: Hip Depuy Orthopaedics Inc 08/21/2027 [id number] / / [id number] Depuy Orthopaedics Inc [place] 56mm 36mm Hip Neutral Liner Acetabular Altrx Sterile Latex Free [id number] - [id number] Implanted:Qty: 1 on 10/28/2022 by Darren Rose MD at [facility] Right: Hip [employer] Inc 08/21/2027 [id number] / / [id number] Depuy [employer] Inc [place] 56mm Sector Hip Shell Acetabular Gription Sterile Latex Free [id number] - [id number] Implanted:Qty: 1 on 10/28/2022 by Darren Rose MD at [facility] Right: Hip [employer]ed[employer] Inc 06/21/2032 [id number] / / [id number] Depuy Orthopaed[employer] Inc Actis Collar Hip 9 Standard Offset Stem Femoral [id number] - [id number] Implanted:Qty: 1 on 10/28/2022 by Darren Rose MD at [facility] Right: Hip [employer]ed[employer] Inc 11/20/2031 [id number] / / [id number] Carly [employer] Bioprep Preparation Plug Industrial Arts Teacher [place] Curette Suction Femoral [id number] - [id number] Implanted:Qty: 1 on 02/09/2024 by Darren Rose MD at [facility] Right: Knee [employer] [id number] 08/22/2028 [id number] / / [id number] [employer] Cement Bone High Viscosity Gentamicin Radiopaque Single Dose Hemiarthroplpasty Simplex [id number] Pmma 6195-1-010 - [id number] Implanted:Qty: 1 on 02/09/2024 by Darren Rose MD at [facility] Right: Knee [employer] [id number] 05/22/2025 6195-1-010 / / [id number] [employer] Cement Bone High Viscosity Gentamicin Radiopaque Single Dose Hemiarthroplpasty Simplex [id number] Pmma 6195-1-010 - [id number] Implanted:Qty: 1 on 02/09/2024 by Darren Rose MD at [facility] Right: Knee [employer] [id number] 05/22/2025 6195-1-010 / / [id number] Depuy Orthopaed[employer] Inc Attune Cement Revision Fix Bearing Knee 7 Baseplate Tibial [id number] - [id number] Implanted:Qty: 1 on 02/09/2024 by Darren Rose MD at [facility] Right: Knee [employer] [id number] 06/21/2027 [id number] / / [id number] Depuy Orth[employer]ed[employer] Inc [id number] Attune 14mm 50mm Cemented Revision Knee Stem Femoral Sterile - [id number] Implanted:Qty: 1 on 02/09/2024 by Darren Rose MD at [facility] Right: Knee [employer] Inc [id number] 03/21/2033 [id number] / / [id number] Depuy Orth[employer]ed[employer] Inc Insert Attune Right Medial Stabilized Size 8 5mm [id number] - [id number] Implanted:Qty: 1 on 02/09/2024 by Darren Rose MD at [facility] Right: Knee [employer] Inc [id number] 06/21/2030 [id number] / / [id number] Procedures Procedure Name Priority Date/Time Associated Diagnosis Comments [place] ARTHROCENTESIS ASPIR&/INJ MAJOR JT/BURSA W/O US Routine 03/23/2025 11:45 AM CDT Glenohumeral arthritis, left Rotator cuff tendinitis, right Biceps tendinitis of right upper extremity SERUM HEPATITIS C AB Routine 03/06/2016 6:19 AM CDT from Last 3 Months or Most Recently Relevant to Health Maintenance Results * W[place] ARTHROCENTESIS ASPIR&/INJ MAJOR JT/BURSA W/O US (03/23/2025 11:45 AM CDT) Narrative Thomas Gonsales PA - 03/23/2025 11:45 AM CDT Thomas Gonsales PA 03/23/2025 12:08 PM Large Joint (Hip, Knee, Shoulder) Injection: bilateral subacromial bursa Performed by: Thomsa Gonsales PA Authorized by: Thomas Gonsales PA Large Joint Injection/Aspiration: Consent Given by: Patient Site marked: the procedure site was marked Verbal consent obtained: Yes Supporting Documentation: Indications: Pain Procedure Details: Location: Shoulder Site: Bilateral subacromial bursa Needle Size: 22 G Approach: Posterior Ultrasound guided: No Fluroscopic guidance: No Medications Right Large Joint Injection: 80 mg methylPREDNISolone acetate 80 mg/mL; 3 mL lidocaine 20 mg/mL (2 %) Medications Left Large Joint Injection: 80 mg methylPREDNISolone acetate 80 mg/mL; 3 mL lidocaine 20 mg/mL (2 %) Patient tolerance: Patient tolerated the procedure well with no immediate complications In the left shoulder half of the medication was delivered to the glenohumeral joint and the other half was delivered in the subacromial space. Thomas MASTERSON IN CLINIC/BEDSIDE ORDERABLE S Final Result * Serum Hepatitis C ab (03/06/2016 6:19 AM CDT) HCV ab Negative NEG HISTORICAL RESULTS Serum 03/06/2016 6:19 AM CDT Narrative HISTORICAL RESULTS - 03/07/2016 5:06 AM CDT Interpretive Data If confirmation is required, call Laboratory Customer Service to request sample to be sent to [facility] for Hepatitis C Virus (HCV) RNA Detection and Quantitation by Real-Time Reverse Stone Belt Sander-PCR (RT-PCR). Current interpretive data was last revised on 2011 us Kiah Lind TAXATION AGENT LAB BLOOD ORDERABLES Final Result HISTORICAL RESULTS from Last 3 Months or Most Recently Relevant to Health Maintenance Insurance [facility] HMO/PPO Address: [address] [address] [place] [address] [facility] HMO/PPO Address: [address] [address] [place] [address] [facility] MEDICARE ADVANTAGE [facility] MEDICARE Address: [facility] [address] [place] [address] Advance Directives For more information, please contact: [phone] * Full Code (Latest Code Status on File) Date Activated Date Inactivated Comments 02/09/2024 4:47 PM 02/10/2024 6:52 PM * Full Code Date Activated Date Inactivated Comments 10/28/2022 12:52 PM 10/29/2022 7:13 PM * Full Code Date Activated Date Inactivated Comments 12/01/2020 6:10 PM 12/03/2020 5:03 PM Care Teams Assembling Fabricator Relationship Specialty Start Date End Date Teodoro Plunkett DO [address] [place] [address] PCP - General Family Medicine 08/06/22 Darren Rose MD [address] [place] [address] Surgeon Orthopedic Surgery 10/28/22 Aung Lenz MD [address] [place] [address] Consulting Physician Anesthesiology 02/03/25
--- OUTSIDE RECORDS SUMMARY | 2025-06-05 09:45 | XMS_ITS ---
Author Organization [address] Address [address] [place] [address] Care Team Providers Care Mica Laminating Machine Feeder Name Role Phone Teodoro Plunkett DO Primary Care Provider Darren Rose MD Unavailable [phone] Aung Lenz MD Unavailable [phone] Transplant Episode Kidney Potential Donor [facility] ([place], [place]) - [facility] Referred on 06/21/2024 Marked as Deferred on 10/16/2024 Reason: Pending Return of Packet Kidney CoordinatorAco Lucy Garcia MD Fax: N/A Email: N/A Care Team Name Role Phone Fax Email Aco Lucy Garcia MD Kidney Coordinator N/A N/A Elva Martinez Primary Chemical Dependency Attendant N/A N/A N/A Events Pre-Donation Referred: 06/21/2024
--- OUTSIDE RECORDS SUMMARY | 2025-06-05 09:46 | XMS_ITS | Encounter Summary ---
Author Organization [facility] Address [address] [place] [address] Care Team Providers Care Umbrella Finisher Name Role Phone Unavailable Primary Care Provider Unavailabl e Reason for Visit * Reason Onset Date Comments Labs Only 06/18/2020 Encounter Details Date Type Department Care Team (Late st Contact Info) Description 06/18/[address] [facility] [address] [place] [address] [place] (), RT Labs Only Social History Tobacco Use Types Packs/Day Years Used Date Smoking Tobacco: Never Assessed Sex and Gender Information Value Date Recorded Sex Assigned at Not on file Legal Sex Male 10:06 AM CDT Gender Identity Not on file Sexual Orientation Not on file COVID-19 Exposure Response Date Recorded In the last month, have you been in contact with someone who was confirmed or suspected to have Coronavirus / COVID-19? Unable to assess 06/12/2020 9:29 AM CDT documented as of this encounter Plan of Treatment Not on file documented as of this encounter Visit Diagnoses Not on filedocumented in this encounter
--- OUTSIDE RECORDS SUMMARY | 2025-06-05 09:46 | XMS_ITS | Clinical Summary ---
Author Organization [facility] Address [address] [place] [address] Care Team Providers Care Scraper Tender Name Role Phone Unavailable Primary Care Provider Unavailabl e Allergies No known active allergies Medications rosuvastatin (CRESTOR) 10 mg tablet TAKE 1 TABLET BY MOUTH ONCE DAILY 06/09/2020 Active lisinopril-hydro CHLOROthiazide (ZESTORETIC) 20-25 mg tablet TAKE 1 TABLET BY MOUTH ONCE DAILY 06/08/2020 Active Active Problems No known active problems Social History Tobacco Use Types Packs/Day Years Used Date Smoking Tobacco: Never Assessed Sex and Gender Information Value Date Recorded Sex Assigned at Not on file Legal Sex Male 10:06 AM CDT Gender Identity Not on file Sexual Orientation Not on file Last Filed Vital Signs Vital Sign Reading Time Taken Comments Blood Pressure 130/74 06/16/2020 8:04 AM CDT Pulse 79 06/16/2020 8:04 AM CDT Temperature 36.9 C (98.5 F) 06/16/2020 8:04 AM CDT Respiratory Rate 16 06/16/2020 8:04 AM CDT Oxygen Saturation 98% 06/16/2020 8:04 AM CDT Inhaled Oxygen Concentration - - Weight 93 kg (205 lb) 06/16/2020 8:04 AM CDT Height 180.3 cm (5' 11) 06/16/2020 8:04 AM CDT Body Mass Index 28.59 06/16/2020 8:04 AM CDT Plan of Treatment Health Maintenance Due Date Last Done Comments DTAP/TDAP/TD VACCINES (1 - Tdap) 11/29/1978 COLORECTAL SCREENING 11/29/2004 Colorectal Cancer Screening 11/29/2004 FIT-DNA Q 3 years 11/29/2004 FIT/FOBT Q 1 year 11/29/2004 Flex Sig/CT Colonography Q 5 years 11/29/2004 PNEUMOCOCCAL VACCINE 50+ YEARS (1 of 1 - PCV) 11/30/19 ZOSTER VACCINE (1 of 2) 11/29/2009 INFLUENZA VACCINE (#1) 2025 RSV VACCINE (60+ or ) (1 - 1-dose 75+ series) 11/29/2034 Insurance [facility]
--- OUTSIDE RECORDS SUMMARY | 2025-06-05 09:46 | XMS_ITS | Patient Health Record ---
Author Organization [facility] ([address]) Address [address] [place] [address] Care Team Providers Care Vice President Of Academic Affairs Name Role Phone Darren Rose Primary Care Provider Barbara Marcos Unavailable [phone] Allergies No Known Allergies Reason For Referral No Information Medications Medication SIG (Take, Route, Frequency, Duration) Notes Start Date End Date Status HYDROCODONE CP 5mg/325mg takes prn *Please review for potential replacement for e-prescription and drug interaction check* Active Multivitamin - 1 po once a day Active LISINOPRIL 10 mg 1 tab(s) orally once a day; Duration: 30 day(s) Active MULTIVITAMIN 1 po once a day A ctive Lisinopril 10 MG 1 tab(s) orally once a day; Duration: 30 day(s) Active Immunizations Vaccine Route Administration Date Status Comme nts NOC Fluzone Quadrivalent Unknown 07/01/2022 Administere d Social History Tobacco Use: Social History Observation Description Date Details (start date - stop date) Former Smoker NA - NA Smoking Smart Form: Question Answer Notes Are you a: former smoker Problems Problem Type SNOMED Code ICD Code Onset Dates Problem Status W/U Status Risk Notes Problem Chronic allergic conjunctivitis (30811372) Other chronic allergic conjunctivitis (H10.45) Active confirmed Problem Allergic rhinitis caused by pollen (disorder) (20863927) Allergic rhinitis due to pollen (J30.1) Active confirmed Problem Allergic rhinitis (05896006) Other allergic rhinitis (J30.89) Active confirmed Problem Chronic rhinitis (31431266) Chronic rhinitis (J31.0) Active confirmed Problem Uncomplicated mild persistent asthma (820170640) Mild persistent asthma, uncomplicated (J45.30) Active confirmed Problem Uncomplicated moderate persistent asthma (739715493) Moderate persistent asthma, uncomplicated (J45.40) Active confirmed Problem Uncomplicated severe persistent asthma (772155219) Severe persistent asthma, uncomplicated (J45.50) Active confirmed Problem Urticaria (473131786) Other urticaria (L50.8) Active confirmed Problem Adverse reaction caused by drug (disorder) (54536300) Adverse effect of unspecified drugs, medicaments and biological substances, initial encounter (T50.905A) Active confirmed Problem Allergic rhinitis caused by animal hair and dander (156858624270637) Allergic rhinitis due to animal (cat) (dog) hair and dander (J30.81) Active confirmed Problem Allergy status t o anesthetic agent status (Z88.4) Active confirmed Plan Of Treatment No Information Insurance Providers Payer Name Payer Address Payer Phone Subscriber Number Group Number Insured Name Patient Relationship to Insured Coverage Start Date Coverage End Date [facility] [address] [address] [place] [address] [id number] Bobo Hager Self - patient is the insured Medical (General) History Medical History History ICD Code HTN Surgical History Surgery Date(Month/Year) Left knee replacement 1989 Right knee replacement 2012 Fusions to back, L5-S1 (total of 6 surge davian)
[2025-06-05 10:19] LABS: Hematocrit 43.6 % (37.0-46.0); Hemoglobin 14.1 g/dL (12.4-15.3); Immature Granulocyte Percent A 0.9 % (0.0-0.0); Lymphocytes Absolute Auto 1.17 K/mm3 (1.10-4.50); Mean Corpuscular HGB Conc 32.3 g/dL (32-36); Mean Corpuscular Hemoglobin 27.5 pg (27.0-31.0); Mean Corpuscular Volume 85.0 fL (78.0-102.0); Nucleated Red Blood Cells Absolute Auto 0.00 K/mm3 (0.00-0.00); Nucleated Red Blood Cells Perc 0.0 % (0-0.0); Platelet Count Result 303 K/mm3 (150-420); Red Blood Count 5.13 M/mm3 (4.70-6.10); White Blood Count 6.6 K/mm3 (4.8-10.8)
[2025-06-05 10:27] LABS: Add Urine Microscopic? NO; Appearance Urine Clear (Clear); Glucose Urine UA Negative (Negative); Leukocyte Esterase Ur Negative LEU/UL (Negative); Nitrate Urine Negative (Negative); Specific Grav Ur 1.020 (1.010-1.020)
[2025-06-05 10:30] LABS: Alanine Aminotransferase 38 U/L (6-50); Albumin Level 4.7 g/dL (3.5-5.1); Alkaline Phosphatase 67 U/L (38-126); Anion Gap 12 mmol/L (4-12); Aspartate Amino Transferase 38 U/L (17-59); Bilirubin,Total 0.6 mg/dL (0.2-1.3); Blood Urea Nitrogen 18 mg/dL (9-20); Calcium 10.0 mg/dL (8.4-10.2); Carbon Dioxide 27 mmol/L (22-30); Chloride 99 mmol/L (98-107); Estimated CRCL calculation 91 ml/min; Estimated Glomerular Filt Rate > 60; Glucose 168 mg/dL (65-110); Lipase 118 U/L (23-300); Osmolality Calculated 291 mOsm/kg (285-295); Potassium 4.5 mmol/L (3.4-5.0); Sodium 138 mmol/L (137-145); Total Protein 8.6 g/dL (6.3-8.2)
[2025-06-05 11:42] VITALS: BP 147/92; PULSE 80; RESP 20; TEMP 36.7; O2SAT 97
== END 2025-06-05 11:44 | disposition home or self-care (01) ==
PROVIDERS: Emergency Provider Internal Medicine Critical Care Medicine; PCP Family Medicine
DX: R07.89 Other chest pain (principal); I10 Essential (primary) hypertension; E11.9 Type 2 diabetes mellitus without complications; E78.5 Hyperlipidemia, unspecified; Z87.891 Personal history of nicotine dependence; W01.0XXA Fall on same level from slipping, tripping and stumbling without subsequent striking against object, initial encounter
CPT/HCPCS: 36415; 71250; 80053; 81003; 83690; 85025; 99284

== ENCOUNTER 2025-09-21 07:07 | Outpatient (CLI) | payer MEDICARE, SELFPAY ==
--- OUTSIDE RECORDS SUMMARY | 2015-03-08 09:44 | XMS_ITS | Continuity of Care Document ---
Author Organization [employer] [place] Address [address] [place] [address] [address] [place] [address] Phone Care Team Providers Care Sales Trainee Name Role Phone Hanny Sotelo DPT Unavailable Unavailable Procedures Procedure Date THERAPEUTIC EXERCISES MANUAL THERAPY FUNC ACTIVITY THERAPEUTIC EXERCISES MANUAL THERAPY FUNC ACTIVITY THERAPEUTIC EXERCISES MANUAL THERAPY FUNC ACTIVITY THERAPEUTIC EXERCISES MANUAL THERAPY FUNC ACTIVITY THERAPEUTIC EXERCISES MANUAL THERAPY FUNC ACTIVITY THERAPEUTIC EXERCISES MANUAL THERAPY FUNC ACTIVITY PT EVALUATION THERAPEUTIC EXERCISES MANUAL THERAPY FUNC ACTIVITY THERAPEUTIC EXERCISES NEUROMUSCULAR RE-ED MANUAL THERAPY FUNC ACTIVITY ELECTRIC STIMULATION UNATT THERAPEUTIC EXERCISES NEUROMUSCULAR RE-ED MANUAL THERAPY FUNC ACTIVITY ELECTRIC STIMULATION UNA THERAPEUTIC EXERCISES NEUROMUSCULAR RE-ED MANUAL THERAPY FUNC ACTIVITY ELECTRIC STIMULATION UNATT PT RE-EVALUATION THERAPEUTIC EXERCISES NEUROMUSCULAR RE-ED MANUAL THERAPY FUNC ACTIVITY ELECTRIC STIMULATION UNA THERAPEUTIC EXERCISES NEUROMUSCULAR RE-ED MANUAL THERAPY FUNC ACTIVITY ELECTRIC STIMULATION UNA THERAPEUTIC EXERCISES NEUROMUSCULAR RE-ED MANUAL THERAPY FUNC ACTIVITY GAIT TRAINING 15 MIN ELECTRIC STIMULATION UNA THERAPEUTIC EXERCISES NEUROMUSCULAR RE-ED MANUAL THERAPY FUNC ACTIVITY GAIT TRAINING 15 MIN ELECTRIC STIMULATION UNA THERAPEUTIC EXERCISES NEUROMUSCULAR RE-ED MANUAL THERAPY FUNC ACTIVITY GAIT TRAINING 15 MIN HOT/COLD PACK ELECTRIC STIMULATION PT EVALUATION THERAPEUTIC EXERCISES MANUAL THERAPY HOT/COLD PACK ELECTRIC STIMULATION THERAPEUTIC EXERCISES NEUROMUSCULAR RE-ED MANUAL THERAPY FUNC ACTIVITY 15 MIN PT RE-EVALUATION THERAPEUTIC EXERCISES MANUAL THERAPY THERAPEUTIC EXERCISES NEUROMUSCULAR RE-ED MANUAL THERAPY THERAPEUTIC EXERCISES MANUAL THERAPY THERAPEUTIC EXERCISES MANUAL THERAPY THERAPEUTIC EXERCISES MANUAL THERAPY THERAPEUTIC EXERCISES MANUAL THERAPY PT RE-EVALUATION THERAPEUTIC EXERCISES NEUROMUSCULAR RE-ED MANUAL THERAPY FUNC ACTIVITY 15 MIN THERAPEUTIC EXERCISES NEUROMUSCULAR RE-ED MANUAL THERAPY FUNC ACTIVITY 15 MIN THERAPEUTIC EXERCISES NEUROMUSCULAR RE-ED MANUAL THERAPY PT EVALUATION THERAPEUTIC EXERCISES NEUROMUSCULAR RE-ED HOT/COLD PACK Advance Directives Directive Yes / No Effective Date File Name No Information Encounters Encounter Description Practice Location Reason(s) For Visit Diagnoses Date Provider Providers Copied on Encounter [address] [address], [place], [place], [id number], [phone] No Information 5 Deepak Gamino. [address] [place] [address], [facility] [address], [place], [facility], . tel:[phone] [address] [address], [place], [place], [id number], [phone] No Information 5 Deepak Gamino. [address] [place] [address], [facility] 105, [place], [facility], . tel: [phone] Referring Provider: Raf Huynh [address] [place] [address] Medical Office Building [address], [facility]. tel:[phone], [id number], tel:[phone] No Information 5 Deepak Gamino. [address] [place] [address], [facility] [address], [place], [facility], . tel: [phone] Referring Provider: Raf Huynh [address] [place] [address] Medical Office Building [address], [facility]. tel:[phone], [id number], tel:[phone] No Information 5 Deepak Gamino. [address] [place] [address], [address], [place], [facility], . tel:[phone] Referring Provider: Raf Huynh [address] [place] [address] Office Building [address], [facility]. tel:[phone] [place] [address], [id number], tel:[phone] No Information May-2 0-201 5 Deepak Hanny. [address] [place] [address], [address], [facility], . tel: [phone] Referring Provider: Raf Huynh, [address] [place] [address] Medical Office Building [address], [facility]. tel:[phone] [place], [place] [address]e [address] [place] [address], [id number], tel:[phone] No Information January-1 2-201 5 Deepak Hanny. [address] [place] [address], [address], [facility], . tel: [phone] Referring Provider: Raf Huynh, [address] [place] [address] Medical Office Building [address], [facility]. tel:[phone] [place] [address], [id number], tel:[phone] No Information May-0 5-201 5 Deepak Hanny. [address] [place] [address], [address] [place] [address], [facility], . tel:[phone] Referring Provider: Raf Huynh, [address] [place] [address] Medical Office Building [address], [facility]. tel:[phone] [place] [address], [id number], tel:[phone] No Information May-0 1-201 5 Deepak Hanny. [address] [place] [address], [address], [facility], . tel:[phone] Referring Provider: Raf Huynh, [address] [place] [address] Medical Office Building [address], [facility]. tel:[phone] [place] [address], [id number], tel:[phone] No Information 7 5 Deepak Gamino. [address] [place] [address], [place] [address], . tel: [phone] Referring Provider: Raf Huynh, [address] [place] [address] Medical Office [facility] [address], [facility]. tel:[phone], [id number], tel:[phone] No Information 0 5 Muehl Sangita. [address] [place] [address], [place] [address], . tel: [phone] Referring Provider: Raf Huynh, [address] [place] [address], [facility]. tel:[phone] [place] [address], [id number], tel:[phone] No Information 2 5 Muehl Sangita. [address] [place] [address], [address], [facility], . tel: [phone] Referring Provider: Raf Huynh, [address] [place] [address] Office [address] [place] [address], [facility]. tel:[phone], [id number], tel:[phone] No Information 6 5 Marlon Richard. [address] [place] [address], [place] [address], . tel: [phone] Referring Provider: Raf Huynh, [address] [place] [address] Medical Office Building [address], [facility]. tel:[phone] [facility] [address] [place] [address], [id number], [place] tel:[phone] No Information 6-201 4 Mason Hilary. [address] [place] [address], [address], [facility], . tel: [phone] Referring Provider: Raf Huynh, [address] [place] [address] Medical Office Building [address], [address]. tel:[phone] [place] [address], [place], [id number], [place] tel:[phone] No Information 5-201 4 Mason Hilary. [address] [place] [address], [address], [facility], . tel: [phone] Referring Provider: Raf Huynh, [address] [place] [address] Medical Office Building [address], [address]. tel:[phone] [place] [address], [place], [id number], [place] tel:[phone] No Information 0 3-201 4 Mason Hilary. [address] [place] [address], [address], [place], [facility], [place]. tel: [phone] Referring Provider: Raf Huynh, [address] [place] [address] Medical Office Building [address], [address]. tel:[phone] [address] [address], [place], [place], [id number], [place] tel:[phone] No Information 0-201 4 Mason Hilary. [address] [place] [address], [address], [facility], [place]. tel: [phone] Referring Provider: Raf Huynh, [address] [place] [address] Medical Office Building [address], [address]. tel:[phone], [place], [place], [id number], [place] tel:[phone] Pain in joint involving lower leg Nov- 1-201 4 Mason Hilary. [address] [place] [address], [address], [place], [facility], [place]. tel: [phone] Referring Provider: Raf Huynh, [address] [facility] Medical Office Building [address] [address], [place], [address]. tel:[phone], [place], [place], [id number], [place] tel:[phone] No Information Mar-1 1-201 4 Mason Hilary. [address] [place] [address], [address], [place], [facility], [place]. tel: [phone] [address], [place], [id number], [place] tel:[phone] [place] No Information Mar-0 6-201 4 Lara-Cody es Bari. [address] [place] [address], [address], [place], [facility], [place]. tel: [phone] [facility] [address] [place], [place] [address], [place], [place], [id number], [place] tel:[phone] [place] No Information Mar-0 4-201 4 Lara-Cody es Bari. [address] [place] [address], [address], [place], [facility], [place]. tel: [phone] [facility] [address] [facility] [address], [place], [id number], [place] tel:[phone] [place] No Information Feb-2 0-201 4 Lara-Cody es Bari. [address] [place] [address], [address], [place], [facility], [place]. tel: [phone] [facility], [address] [facility] [address], [place], [place], [id number], [place] tel:[phone] [place] No Information Feb-1 3-201 4 Lara-Cody es Bari. [address] [place] [address], [address], [place], [address], [place]. tel: [phone] [facility] [address], [place], [id number], [place] tel:[phone] [place] No Information 0-201 4 Lara-Cody neal Bari. [address] [place] [address], [address], [place], [address], [place]. tel: [phone] [facility] [address], [place], [id number], [place] tel:[phone] [place] No Information 0 6-201 4 Lara-Cody ángel Bari. [address] [place] [address], [address], [place], [address], [place]. tel: [phone] [facility] [address], [place], [place], [id number], [place] tel:[phone] No Information 8-201 4 Mason Hilary. [address] [place] [address], [address], [place], [address], [place]. tel: [phone] [facility] [address], [place], [place], [id number], [place] tel:[phone] No Information 4-201 4 Mason Hilary. [address] [place] [address], [address], [place], [address], [place]. tel: [phone] [facility], [place], [place], [id number], [place] tel:[phone] No Information 1-201 4 Mason Hilary. [address] [place] [address], [address], [place], [address], [place]. tel: [phone] [facility], [place], [place], [id number], [place] tel:[phone] Adolph Moraba 3-201 4 Mason Hilary. [address] [place] [address] Drive, [address], [place], [address], [place]. tel: [phone] Family History Family Member Type Diagnosis Age At Onset No Information Payers Payer name Insurance type Covered democrat ID Authoriza tion(s) No Information Social History Type Description Quantity Date Captured Comments Sex Male Smoking Status No Information Chief Complaint And Reason For Visit No Information Reason For Referral Reason For Referral No Information History Of Present Illness Encounter Date Complaint History Of Prese nt Illness No Information Functional Status Date Functional Assessmen t No Information Instructions Date Instruction Additional Infor mation No Information Assessments Type Assessment Date No Information Patient Care Teams Name Effective Dates (start - stop) Status Members No Information
--- OUTSIDE RECORDS SUMMARY | 2025-09-21 07:12 | XMS_ITS | Patient Health Record ---
Author Organization Count Includes [facility] ([address]) Address [address] [place] [address] Care Team Providers Care Security Alarm Installer Name Role Phone Darren Rose Primary Care Provider Yohan Marcosica Unavailable [phone] Allergies No Known Allergies Reason For Referral [...] Status Risk Notes Problem Chronic allergic conjunctivitis (70469653) Other chronic allergic conjunctivitis (H10.45) Active confirmed Problem Allergic rhinitis caused by pollen (disorder) (63997778) Allergic rhinitis due to pollen (J30.1) Active confirmed Problem Allergic rhinitis (80966256) Other allergic rhinitis (J30.89) Active confirmed Problem Chronic rhinitis (92128825) Chronic rhinitis (J31.0) Active confirmed Problem Uncomplicated mild persistent asthma (863158097) Mild persistent asthma, uncomplicated (J45.30) Active confirmed Problem Uncomplicated moderate persistent asthma (714259084) Moderate persistent asthma, uncomplicated (J45.40) Active confirmed Problem Uncomplicated severe persistent asthma (173662829) Severe persistent asthma, uncomplicated (J45.50) Active confirmed Problem Urticaria (812742656) Other urticaria (L50.8) Active confirmed Problem Adverse reaction caused by drug (disorder) (38503649) Adverse effect of unspecified drugs, medicaments and biological substances, initial encounter (T50.905A) Active confirmed Problem Allergic rhinitis caused by animal hair and dander (290069729028523) Allergic rhinitis due to animal (cat) (dog) hair and dander (J30.81) Active confirmed Problem Allergy status t o anesthetic agent status (Z88.4) Active confirmed Plan Of Treatment No Information Insurance Providers Payer Name Payer Address Payer Phone Subscriber Number Group Number Insured Name Patient Relationship to Insured Coverage Start Date Coverage End Date [facility] [address] [address] [place] [address] [id number] Bobo Hager Self - patient is the insured Medical (General) History Medical History History ICD Code HTN Surgical History Surgery Date(Month/Year) Left knee replacement 1989 Right knee replacement 2012 Fusions to back, L5-S1 (total of 6 surge davian)
--- OUTSIDE RECORDS SUMMARY | 2025-09-21 07:12 | XMS_ITS | Clinical Summary ---
Author Organization [facility] Address [address] [place] [address] Care Team Providers Care Facility Coordinator Name Role Phone Unavailable Primary Care Provider [...] (1 - 1-dose 75+ series) 11/29/2034 Insurance [facility] [place] [address]
--- OUTSIDE RECORDS SUMMARY | 2025-09-21 07:12 | XMS_ITS | Encounter Summary ---
Author Organization [facility] Address [address] [place] [address] Care Team Providers Care Paving Inspector Name Role Phone Unavailable Primary Care Provider Unavailabl e Reason for Visit * Reason Onset Date Comments Labs Only 06/18/2020 Encounter Details Date Type Department Care Team (Late st Contact Info) Description 06/18/2020 Telephone [facility] [address] [place] [address] Nj Green (), RT Labs Only Social [...]
--- OUTSIDE RECORDS SUMMARY | 2025-09-21 07:12 | XMS_ITS | Encounter Summary ---
Author Organization [facility] Address [address] [place] [address] Care Team Providers Care Labor Conciliator Name Role Phone Lloyd Chi MD Primary Care Provider [phone] Unknown, Notinfile Primary Care Provider Unavail able No, Physician Primary Care Provider No, Physician Primary Care Provider [phone] Teodoro Plunkett DO Primary Care Provider Darren Rose MD Unavailable [phone] Aung Lenz MD Unavailable [phone] Encounter Details Date Type Department Care Team (Late st Contact Info) Description 05/26/2019 Telephone [facility] [place] [id number] [facility] [address] [place] [address] Mann Priest MD [address] [facility] [address] [place] [address] Social History Tobacco Use Types Packs/Day Years Used Date Smoking Tobacco: Every Day Smokeless Tobacco: Current Chew Alcohol Use Standard Drinks/Week Comments Yes 0 (1 standard drink = 0.6 oz pur e alcohol) Sex and Gender Information Value Date Recorded Sex Assigned at Not on file Legal Sex Male 11:55 PM FREIGHT CONDUCTOR Gender Identity Not on file Sexual Orientation [...] lighting, especially on stairs Contact your local [facility] or [facility] for information on exercise, fall prevention [...] good lighting, especially on stairs Contact your [facility] or [facility] for information on exercise, fall prevention programs, or options for improving home safety. documented as of this encounter Visit Diagnoses Not on filedocumented in this encounter Additional Health Concerns Infection Onset Date Last Indicated Resolved Time COVID: Suspected 08/27/2022 08/27/2022 08/27/2022 2:52 PM FREIGHT CONDUCTOR documented as of this encounter Care Teams Labor Conciliator Relationship Specialty Start Date End Date Lloyd Chi MD PCP - General 06/23/17 05/17/20 Unknown, Notinfile PCP - General 05/18/20 11/22/20 No, Physician PCP - General 11/23/20 11/30/20 No, Physician PCP - General 12/01/20 08/05/22 Teodoro Plunkett DO [address] [place] [address] PCP - General Family Medicine 08/06/22 Darren Rose MD [address] [facility] [address] [place] [address] Surgeon Orthopedic Surgery 10/28/22 Aung Lenz MD [address] [facility] [address] [place] [address] Consulting Physician Anesthesiology 02/03/25 documented as of this encounter
[2025-09-21 07:23] LABS: Hematocrit 45.2 % (37.0-46.0); Hemoglobin 14.5 g/dL (12.4-15.3); Immature Granulocyte Percent A 1.1 % (0.0-0.0); Lymphocytes Absolute Auto 0.98 K/mm3 (1.10-4.50); Mean Corpuscular HGB Conc 32.1 g/dL (32-36); Mean Corpuscular Hemoglobin 27.3 pg (27.0-31.0); Mean Corpuscular Volume 85.0 fL (78.0-102.0); Nucleated Red Blood Cells Absolute Auto 0.00 K/mm3 (0.00-0.00); Nucleated Red Blood Cells Perc 0.0 % (0-0.0); Platelet Count Result 273 K/mm3 (150-420); Red Blood Count 5.32 M/mm3 (4.70-6.10); White Blood Count 5.5 K/mm3 (4.8-10.8)
[2025-09-21 07:37] LABS: MALB Creatinine Ratio 5.0 mg/g (0-30)
[2025-09-21 07:38] LABS: Hemoglobin A1C 5.5 % (<5.7)
[2025-09-21 07:56] LABS: Alanine Aminotransferase 61 U/L (6-50); Albumin Level 4.3 g/dL (3.5-5.1); Alkaline Phosphatase 105 U/L (38-126); Anion Gap 12 mmol/L (4-12); Aspartate Amino Transferase 87 U/L (17-59); Bilirubin,Total 0.2 mg/dL (0.2-1.3); Blood Urea Nitrogen 28 mg/dL (9-20); Calcium 9.2 mg/dL (8.4-10.2); Carbon Dioxide 22 mmol/L (22-30); Chloride 107 mmol/L (98-107); Cholesterol 216 mg/dL (0-200); Estimated Glomerular Filt Rate > 60; Glucose 124 mg/dL (65-110); HDL Direct 71 mg/dL; Osmolality Calculated 298 mOsm/kg (285-295); Potassium 4.3 mmol/L (3.4-5.0); Sodium 141 mmol/L (137-145); Total Protein 6.8 g/dL (6.3-8.2); Triglycerides 108 mg/dL (<150)
[2025-09-21 09:39] LABS: Thyroid Stimulating Hormone Reflex 1.870 uIU/mL (0.465-4.68)
== END 2025-09-21 07:08 | disposition home or self-care (01) ==
LOC: CHSLAB 07:10
PROVIDERS: PCP Family Medicine; Visit Provider Nurse Practitioner Family
DX: E11.9 Type 2 diabetes mellitus without complications (principal)
CPT/HCPCS: 36415; 80053; 80061; 80074; 82043; 83036; 84443; 85025